=== PATIENT | male | born 1950 | race Caucasian/White ===

== ENCOUNTER → 2018-03-24 07:14 | Outpatient (CLI) | payer MEDICARE, OTHER, SELFPAY ==
[2018-03-24 10:47] LABS: Basophil# 0.02 X10^3/uL; Basophil% 0.5 % (0-1); Eosinophil# 0.09 X10^3/uL; Eosinophils% 2.1 % (0-5); Hematocrit 43.2 % (40-54); Hemoglobin 14.6 g/dl (13.0-16.5); Lymphocyte % 40.4 % (19-41); Mean Corp Hgb Conc 33.8 g/gl (32-36); Mean Corpuscular Hgb 32.2 pg (27.0-32.0); Mean Corpuscular Volume 95.2 fL (80-94); Monocyte# 0.44 X10^3/uL; Monocyte% 10.5 % (0-10); Neutrophil # 1.96 X10^3/uL (2.7-7.7); Neutrophil % 46.5 % (47-70); Platelet Count 191 K/mm3 (150-450); RBC Distribution Width CV 12.9 % (11.6-14.6); RBC Distribution Width SD 43.7 fl (35.1-43.9); Red Blood Count 4.54 M/mm3 (4.6-6.2); White Blood Count 4.2 K/mm3 (4.4-11.0)
[2018-03-24 10:51] LABS: POSITIVE COUNT NO; POSITIVE DIFFERENTIAL NO; POSITIVE MORPHOLOGY NO
[2018-03-24 11:05] LABS: ALB/GLOB Ratio 1.1 RATIO (0.9-2.4); AST(SGOT) 25 U/L (15-37); Alanine Aminotransfer ALT/SGPT 31 U/L (16-61); Albumin, Serum 3.9 g/dL (3.2-5.0); Alkaline Phosphatase 45 U/L (45-117); Anion Gap 9 (5-15); BUN 16 mg/dL (7-18); BUN/Creat Ratio 18.6 RATIO (10-20); Calcium,Total 8.7 mg/dL (8.5-10.1); Chloride 106 mmol/L (98-107); Cholesterol 218 mg/dL (200); Creatinine, Serum 0.86 mg/dL (0.70-1.30); EST Glomerular Filtration Rate 94 mL/min (>60); Est Glom Filt Rate - Afr Amer 113 mL/min (>60); Globulin 3.4 g/dL (2.2-4.2); Glucose 83 mg/dL (74-106); High Density Lipoprotein 58 mg/dL; PSA,Total - Annual Screen 3.52 ng/mL (0.00-4.00); Potassium 3.9 mmol/L (3.5-5.1); Protein, Total 7.3 g/dL (6.4-8.2); Sodium Level 143 mmol/L (136-145); Triglycerides 60 mg/dL; Very Low Density Lipoprotein 12 mg/dL (5-40)
== END ==
PROVIDERS: Family Provider Family Medicine; PCP Family Medicine; Visit Provider Family Medicine
DX: E78.5 Hyperlipidemia, unspecified (principal); R53.83 Other fatigue; N40.0 Benign prostatic hyperplasia without lower urinary tract symptoms; Z12.5 Encounter for screening for malignant neoplasm of prostate; Z51.81 Encounter for therapeutic drug level monitoring
CPT/HCPCS: 36415; 80053; 80061; 84153; 85025; G0103

== ENCOUNTER 2018-06-26 08:38 | Day surgery (SDC) | payer MEDICARE, OTHER, SELFPAY ==
--- NOTE | 2018-06-26 08:47 | EKG12_ITS ---
Test Reason : PREOP Blood Pressure : / mmHG Vent. Rate : 059 BPM Atrial Rate : 059 BPM P-R Int : 152 ms QRS Dur : 092 ms QT Int : 426 ms P-R-T Axes : 047 -46 043 degrees QTc Int : 421 ms Sinus bradycardia Left axis deviation Abnormal ECG No previous ECGs available Confirmed by NARESH CHO, ADRIENNE ([id number]), rewrite editor UNIQUE VAZQUEZ ([id number] on 06/27/2018 2:58:48 PM Referred By: Reji Jade Confirmed By:ADRIENNE INFANTE MD
[2018-06-26 09:01] LABS: Hematocrit 45.1 % (40-54); Hemoglobin 15.4 g/dl (13.0-16.5); Mean Corp Hgb Conc 34.1 g/gl (32-36); Mean Corpuscular Hgb 32.3 pg (27.0-32.0); Mean Corpuscular Volume 94.5 fL (80-94); Mean Platelet Vol. 9.9 fl (6.2-12.0); Platelet Count 217 K/mm3 (150-450); RBC Distribution Width CV 12.8 % (11.6-14.6); RBC Distribution Width SD 43.2 fl (35.1-43.9); Red Blood Count 4.77 M/mm3 (4.6-6.2); White Blood Count 4.2 K/mm3 (4.4-11.0)
[2018-06-26 09:02] VITALS: BP 136/70; PULSE 58; RESP 18; TEMP 37.2; O2SAT 96; BMI 23.4
[2018-06-26 09:02] LABS: Scan Indicated on CBC? Y/N NO
[2018-06-26 09:10] LABS: Anion Gap 9 (5-15); BUN 17 mg/dL (7-18); BUN/Creat Ratio 19.1 RATIO (10-20); Calcium,Total 9.2 mg/dL (8.5-10.1); Chloride 106 mmol/L (98-107); Creatinine, Serum 0.89 mg/dL (0.70-1.30); EST Glomerular Filtration Rate 90 mL/min (>60); Est Glom Filt Rate - Afr Amer 109 mL/min (>60); Glucose 90 mg/dL (74-106); Sodium Level 146 mmol/L (136-145)
--- NOTE | 2018-06-26 10:25 | PCM.DC.GS ---
Discharge Diet: Light diet - advance as tolerated - if you have questions about your diet instructions, please talk to you doctor. Discharge Activity: May Not Drive - for 1 week or while taking narcotic pain medicine. May shower in (days): 1 Lifting Restrictions: 10 pounds Call your doctor if your incision/area has: Continuous Slow Oozing, Sudden Increased Bleeding, Increased Pain/ Swelling, Increased Redness, Foul Smelling Discharge Call your doctor if you observe: Fever of 101 or Higher Suture Line Care: Avoid Pulling/Pushing, Avoid Pinching/Bending Additional Dressing/Incision Instructions:: Change or remove dressing in 4 days. Leave steri-strips in place for 1 week. Allergies/Adverse Reactions: Allergies No Known Allergies Allergy (Verified 06/26/18 09:00) Medications to take at Discharge cyclobenzaprine 10 mg tablet 10 mg PO TID PRN 06/15/18 vardenafil 20 mg tablet 20 mg PO ONCE PRN 06/15/18 Hydrocodone Bitart/Apap 5-325 [[place] 5/325] 1 - 2 tab PO Q4H PRN PRN 3 Days #8 tab 06/26/18 The following prescriptions were given: Hydrocodone Bitart/Apap 5-325 [[place] 5/325] 1 - 2 tab PO Q4H PRN PRN 3 Days #8 tab PRN Reason: Pain Primary Care Physician: Moraima Merritt DO [Primary Care Provider] - Test Results: Test results from this visit will be discussed in further detail at your follow-up appointment, if applicable. Please Follow Up With: Reji Jade MD - [phone] When: Call to make an appointment to be seen in about 10 days.
[2018-06-26] MEDS: Cefazolin 2 GM in 0.9% Normal Saline 100 ML IV (10:27)
--- NOTE | 2018-06-26 10:45 | LIP_PTH ---
PATIENT: MARISEL YU LOC: [facility] [place] U#:[id number] AGE/SX: 68/M ROOM: RE06/26/[address]: Dr. Reji Jade MD : 1950 BED: DIS: 06/26/2018 SPEC #: [id number] RECD: 06/26/18 12:36 STATUS: ZACKARY REAnselmo #: [id number] BRIGETTE: 06/26/18 10:[address]: Reji Jade DEPT: SURGICAL PATHOLOGY RECD BY: Edgar Gutierrez ENTERED: 06/26/18 13:02 SP TYPE: LIPOMA OTHR DR: Dr. Moraima Merritt, DO Tissues: Soft tissues, NOS Procedures: Surgery Specimen Level III HEADER OPERATION: Inguinal hernia with mesh PRE-OP DIAGNOSIS: Right inguinal hernia TISSUE SUBMITTED: Cord lipoma MICROSCOPIC DIAGNOSIS Cord lipoma: Mature adipose tissue, consistent with lipoma. SJ:peter 06/27/18 MICROSCOPIC DESCRIPTION Slides are reviewed. GROSS DESCRIPTION Received in fixative is one container labeled with the patient's name and designated cord lipoma. The specimen consists of three variable sized pieces of yellow adipose tissue that in aggregate measure 7.5 x 2 x 1 cm. No mass lesion is identified. Ham Stripper sections are submitted in one cassette. / SJ:rg 06/26/18 TC:1 CPT: 78788
[2018-06-26] MEDS: Bupivacaine Mpf 0.5% 30 ML VIAL (11:28)
--- NOTE | 2018-06-26 11:30 | PCM.OPRPT ---
Problem List (1) Inguinal hernia of right side without obstruction or gangrene Status: Acute Report of Operation Date of Procedure: 06/26/18 Pre-Operative Diagnosis: Right inguinal hernia Post-Operative Diagnosis: Indirect right inguinal hernia with cord lipoma Surgery/Procedure Performed:: Hardik right inguinal herniorrhaphy with excision cord lipoma Description of Surgical Findings:: Timeout informed consent was obtained. 68-year-old gentleman was taken to the operating room. He was placed on the table. He underwent monitored anesthesia care. Ancef 2 g given intravenously preoperatively. The right groin was sterilely prepped and draped. 2% lidocaine mixed 50-50 with 0.5% Marcaine was used as local anesthetic. The procedure total 30 cc was used. Local was instilled. A transverse incision was made in the right groin. Sharp dissection carried down through the subcutaneous tissue. The external oblique was identified and incised along with his fascia. Hemostasis obtained with electrocautery. The ileal nerve identified and protected. Circumferential control was obtained of the cord structures. There was hypertrophy of cremasteric fibers which had to be released. Tedious dissection was used to identify cord lipoma which was high ligated with 3-0 Vicryl. The indirect hernia was dissected free and inverted. Dissection performed so as to identify the direct space overlying the pubic tubercle and the indirect defect. The transversalis fascia was approximated to itself using a 3-0 Ethibond starting at the pubic tubercle to the internal ring. Then a Bard mesh preshaped keyhole 10 x 4.5 cm was used. Lot number RESERVOIR ENGINEER and [id number]. Reference #[id number]. Expiry date 11/23/2022 was utilized. Keyhole was placed around the cord structures and it was secured to itself laterally with interrupted 3-0 Ethibond. The tails were slightly shortened. The mesh was placed so as to overlie the pubic tubercle cover the direct space and lie underneath the external oblique laterally. It was secured in place with multiple interrupted 3-0 Ethibond sutures. Good positioning and securement was achieved. The external oblique was then approximated with a running 3-0 Vicryl. Subdermal tissues were approximated with interrupted 4-0 Monocryl. The skin edges proximate running septic or 4-0 Monocryl. Steri-Strips Telfa and OpSite dressings applied. Sponge and instrument and needle counts were reported to the surgeon to be correct. Specimens Cord lipoma. Drains none. Blood loss minimal. He was taken to the recovery area in satisfactory condition without apparent complication. Reji Jade M.D., F.A.C.S. Type of Anesthesia:: Local MAC Anesthesiologist: Demetri Pappas
--- NOTE | 2018-06-26 11:34 | OP.PCM_ITS ---
Problem List (1) Inguinal hernia of right side without obstruction or gangrene Status: Acute Report of Operation Date of Procedure: 06/26/18 Pre-Operative Diagnosis: Right inguinal hernia Post-Operative Diagnosis: Indirect right inguinal hernia with cord lipoma Surgery/Procedure Performed:: Hardik right inguinal herniorrhaphy with excision cord lipoma Description of Surgical Findings:: Timeout informed consent was obtained. 68-year-old gentleman was taken to the operating room. He was placed on the table. He underwent monitored anesthesia care. Ancef 2 g given intravenously preoperatively. The right groin was sterilely prepped and draped. 2% lidocaine mixed 50-50 with 0.5% Marcaine was used as local anesthetic. The procedure total 30 cc was used. Local was instilled. A transverse incision was made in the right groin. Sharp dissection carried down through the subcutaneous tissue. The external oblique was identified and incised along with his fascia. Hemostasis obtained with electrocautery. The ileal nerve identified and protected. Circumferential control was obtained of the cord structures. There was hypertrophy of cremasteric fibers which had to be released. Tedious dissection was used to identify cord lipoma which was high ligated with 3-0 Vicryl. The indirect hernia was dissected free and inverted. Dissection performed so as to identify the direct space overlying the pubic tubercle and the indirect defect. The transversalis fascia was approximated to itself using a 3-0 Ethibond starting at the pubic tubercle to the internal ring. Then a Bard mesh preshaped keyhole 10 x 4.5 cm was used. Lot number PNEUMATIC SYSTEMS OPERATOR and [id number]. Reference #[id number]. Expiry date 11/23/2022 was utilized. Keyhole was placed around the cord structures and it was secured to itself laterally with interrupted 3-0 Ethibond. The tails were slightly shortened. The mesh was placed so as to overlie the pubic tubercle cover the direct space and lie underneath the external oblique laterally. It was secured in place with multiple interrupted 3-0 Ethibond sutures. Good positioning and securement was achieved. The external oblique was then approximated with a running 3-0 Vicryl. Subdermal tissues were approximated with interrupted 4-0 Monocryl. The skin edges proximate running septic or 4-0 Monocryl. Steri-Strips Telfa and OpSite dressings applied. Sponge and i nstrument and needle counts were reported to the surgeon to be correct. Specimens Cord lipoma. Drains none. Blood loss minimal. He was taken to the recovery area in satisfactory condition without apparent complication. Reji Jade M.D., F.A.C.S. Type of Anesthesia:: Local MAC Anesthesiologist: Demetri Pappas
[2018-06-26 11:43] VITALS: BP 108/71; BP 136/70; PULSE 55; RESP 16; TEMP 36.2; O2SAT 97
[2018-06-26 11:45] VITALS: BP 114/72; BP 136/70; PULSE 56; RESP 16; O2SAT 97
[2018-06-26 12:00] VITALS: BP 118/73; BP 136/70; PULSE 54; RESP 16; O2SAT 97
[2018-06-26 12:15] VITALS: BP 120/72; BP 136/70; PULSE 52; RESP 16; TEMP 36.4; O2SAT 100
[2018-06-26 14:20] VITALS: BP 136/70; BP 148/83; PULSE 50; RESP 16; TEMP 36.3; O2SAT 97
== END 2018-06-26 14:24 | disposition home or self-care (01) ==
LOC: SDC 08:40 → AC 08:41
PROVIDERS: Family Provider Family Medicine; PCP Family Medicine; Referring Provider Surgery; Visit Provider Surgery
PROC: (CPT 49505; principal; 2018-06-26 10:30)
DX: K40.90 Unilateral inguinal hernia, without obstruction or gangrene, not specified as recurrent (principal); D17.6 Benign lipomatous neoplasm of spermatic cord; R94.31 Abnormal electrocardiogram [ECG] [EKG]; R00.1 Bradycardia, unspecified; E78.00 Pure hypercholesterolemia, unspecified; Z79.899 Other long term (current) drug therapy; Z87.891 Personal history of nicotine dependence
CPT/HCPCS: 49505; 36415; 80048; 85027; 88304; 93005; J7120; C1781

== ENCOUNTER 2018-11-21 09:51 | Day surgery (SDC) | payer MEDICARE, OTHER, SELFPAY ==
[2018-11-21] VITALS (11 sets, daily range): BP systolic 96–135; BP diastolic 61–79; PULSE 58–66; RESP 16; TEMP 36.3–36.7; O2SAT 94–100; BMI 23.7
--- NOTE | 2018-11-21 | COLBX_PTH ---
PATIENT: MARISEL YU LOC: [place] U#:[id number] AGE/SX: 68/M ROOM: RE11/21/[address]: Dr. Reji Jade MD : 1950 BED: DIS: 11/21/2018 SPEC #: [id number] RECD: 11/21/18 12:37 STATUS: ZACKARY MARTHA #: [id number] BRIGETTE: 11/21/18 00:[address]: Reji Jade DEPT: SURGICAL PATHOLOGY RECD BY: Stiven Srinivasan ENTERED: 11/21/18 12:38 SP TYPE: COLON BX OTHR DR: Dr. Moraima Merritt DO Tissues: Transverse colon Procedures: Surgery Specimen Level IV HEADER OPERATION: Colonoscopy (MOD) PRE-OP DIAGNOSIS: Screening TISSUE SUBMITTED: Proximal transverse polyp biopsy MICROSCOPIC DIAGNOSIS Proximal transverse colon polyp, biopsy: Tubular adenoma. SJ:peter 11/22/18 MICROSCOPIC DESCRIPTION Slides are reviewed. GROSS DESCRIPTION Received in fixative is one container labeled with the patient's name and designated proximal transverse polyp biopsy. The specimen consists of two irregular fragments of light copeland soft tissue that in aggregate measure 0.6 x 0.3 x 0.1 cm. The specimen is totally submitted in one cassette. / SJ:peter 11/21/18 TC:1 CPT: 76509
--- NOTE | 2018-11-21 10:40 | PCM.HP.STD ---
Problem List (1) Personal history of colonic polyps Status: Acute History of Present Illness Date of Admission: 11/21/18 The patient is a 68 year old M who has a personal history of colon polyps. His most recent colonoscopy was 5 years ago. June he did have a Hardik right inguinal herniorrhaphy. He denies bright red blood per rectum or melena. He recalls that he is previously had 6 inches of his colon removed. This was for benign disease polyp. He otherwise enjoys good health. Past Medical History Medical History: Medical History (Last Reviewed 06/15/18 @ 08:29 by Alyssia Garner) Inguinal hernia of right side without obstruction or gangrene (Acute) K40.90 Hyperlipemia (Acute) E78.5 BPH (benign prostatic hyperplasia) (Acute) N40.0 Tremor, essential (Acute) G25.0 Erectile dysfunction (Acute) N52.9 Chronic low back pain (Acute) M54.5, G89.29 Fatigue (Acute) R53.83 Allergies No Known Allergies Allergy (Verified 11/21/18 10:09) Home Medications: Ambulatory Orders Medication Instructions Recorded cyclobenzaprine 10 mg tablet 10 mg PO PRN PRN 06/15/18 Hydrocodone/Acetaminophen 1 tab PO Q4H PRN 11/15/18 [Hydrocodone-Acetamin 5-325 mg] Ibuprofen 800 mg PO TID PRN 11/15/18 Surgical History: Surgical History (Last Updated 07/05/18 @ 14:16 by Lay Calvillo) Hx of colonoscopy (Acute) Z98.890 2014 Hx of hernia repair (Acute) Z98.890, Z87.19 X2 Hx of appendectomy (Acute) Z90.49 2-17-12 History of bowel resection (Acute) Z98.890, Z90.49 2-17-12 History of right inguinal hernia repair Onset Date: ~06/2018 Z98.890, Z87.19 Smoking Status: Former smoker Review of Systems Constitutional: Denies: Anorexia HEENT: Denies: Difficulty Swallowing Cardiovascular: Denies: Chest Pain Gastrointestinal: Denies: Abdominal Pain Psychiatric: Denies: Anxiety Endocrine: Denies: Change in Body Habitus VTE Information - Inpt Only VTE Present on Admission: No Patient Problems: Active and Suspected Problems (Last Reviewed 06/15/18 @ 08:29 by Alyssia Garner) Personal history of colonic polyps (Acute) - Physical Exam General: Alert, Oriented x3, Cooperative, No apparent distress Oral: Moist Mucosa Neck: Supple Lungs: Clear to auscultation Cardiovascular: Regular rate, Regular Rhythm Abdomen: Bowel Sounds Present, Soft, Non Tender, Non-Distended Musculoskeletal: No Tenderness to Palpation of Joints or Extremities Psych/Mental Status: Normal Affect Vital Signs Temp Pulse Resp BP Pulse Ox 97.4 F L 58 L 16 129/70 H 100 11/21/18 10:11 11/21/18 10:11 11/21/18 10:11 11/21/18 10:11 11/21/18 10:11 Oxygen Delivery Method Room Air Weight: 156 lb Body Mass Index (BMI) 23.7 Assessment/Plan All Active Problems (Last Reviewed 06/15/18 @ 08:29 by Alyssia Garner) Personal history of colonic polyps (Acute) Inguinal hernia of right side without obstruction or gangrene (Acute) Hx of colonoscopy (Acute) Hx of hernia repair (Acute) Hx of appendectomy (Acute) History of bowel resection (Acute) Hyperlipemia (Acute) BPH (benign prostatic hyperplasia) (Acute) Tremor, essential (Acute) Erectile dysfunction (Acute) Chronic low back pain (Acute) Fatigue (Acute) Recommending a colonoscopy with possible biopsy or polypectomy as indicated. He is aware of the technique, benefits, risks and alternatives. He has had an opportunity to ask and have questions answered. We will proceed as noted. He presents via our open access program today Reji Jade M.D., F.A.C.S.
--- NOTE | 2018-11-21 11:06 | OP.ENDO_ITS ---
11/21/2018 Moraima Merritt [address] [facility] [place] [address] Re : Colonoscopy procedure for [facility] Dear Dr. Merritt This procedure was performed on Wednesday, November 21, 2018. My impressions and recommendations are as follows: Impressions : - Preparation of the colon was fair. - Non-thrombosed external hemorrhoids, non-thrombosed internal hemorrhoids, internal hemorrhoids that prolapse with straining, but spontaneously regress to the resting position (Grade II) and enlarged prostate found on digital rectal exam. - One 4 mm polyp in the proximal transverse colon, removed with a cold biopsy forceps. Resected and retrieved. - Patent end-to-end colo-colonic anastomosis, characterized by healthy appearing mucosa. - The examination was otherwise normal. Recommendations : - Discharge patient to home. - Resume previous diet. - Continue present medications. - Repeat colonoscopy in 5 years for surveillance based on pathology results. - Telephone my office for pathology results in 1 week. Poor prep at the cecum but the remainder of the prep was good My findings are described in the full procedure note, which is enclosed. If I can be of further assistance, please feel free to contact me at Doctor phone number(s): Work: . Sincerely, Reji Jade MD 11/21/2018 11:06:20 AM This report has been signed electronically.
== END 2018-11-21 11:45 | disposition home or self-care (01) ==
LOC: EN 09:54 → AC 09:55
PROVIDERS: Family Provider Family Medicine; PCP Family Medicine; Referring Provider Surgery; Visit Provider Surgery
PROC: 0DJD8ZZ Inspection of Lower Intestinal Tract, Via Natural or Artificial Opening Endoscopic (ICD-10-PCS; CPT 45378; principal; 2018-11-21 10:40)
DX: D12.3 Benign neoplasm of transverse colon (principal); K64.1 Second degree hemorrhoids; K64.4 Residual hemorrhoidal skin tags; N40.0 Benign prostatic hyperplasia without lower urinary tract symptoms; G25.0 Essential tremor; M54.5 Low back pain; G89.29 Other chronic pain; Z79.891 Long term (current) use of opiate analgesic; Z87.891 Personal history of nicotine dependence
CPT/HCPCS: 45380; 88305; 99152; 99153; J7120

== ENCOUNTER → 2019-06-21 | Outpatient (CLI) | payer MEDICARE, OTHER, SELFPAY ==
[2018-11-21 10:11] VITALS: BMI 23.7
[2019-06-21 12:10] LABS: Absolute Lymphocyte Count 1.32 X10^3/uL (0.83-4.51); Absolute Neutrophil Count 1.7 X10^3/uL (2.0-7.7); Basophil# 0.04 X10^3/uL; Basophil% 1.1 % (0-1); Eosinophil# 0.19 X10^3/uL; Eosinophils% 5.1 % (0-5); Hematocrit 45.7 % (40-54); Hemoglobin 15.2 g/dL (13.0-16.5); Lymphocyte # 1.32 X10^3/ul (4.0); Lymphocyte % 35.8 % (19-41); Mean Corp Hgb Conc 33.3 g/dL (32-36); Mean Corpuscular Hgb 32.4 pg (27.0-32.0); Mean Corpuscular Volume 97.4 fL (80-94); Mean Platelet Vol. 10.6 fl (6.2-12.0); Monocyte# 0.43 X10^3/uL; Monocyte% 11.7 % (0-10); NRBC Flagged by Analyzer 0 % (0-5); Platelet Count 199 K/mm3 (150-450); RBC Distribution Width CV 12.8 % (11.6-14.6); RBC Distribution Width SD 46.1 fl (35.1-43.9); Red Blood Count 4.69 M/mm3 (4.6-6.2); White Blood Count 3.7 K/mm3 (4.4-11.0)
[2019-06-21 12:27] LABS: ALB/GLOB Ratio 1.1 RATIO (0.9-2.4); AST(SGOT) 19 U/L (15-37); Alanine Aminotransfer ALT/SGPT 23 U/L (16-61); Alkaline Phosphatase 46 U/L (45-117); Anion Gap 6 (5-15); BUN 14 mg/dL (7-18); BUN/Creat Ratio 14.3 RATIO (10-20); Calcium,Total 8.9 mg/dL (8.5-10.1); Chloride 109 mmol/L (98-107); Cholesterol 249 mg/dL (200); Creatinine, Serum 0.98 mg/dL (0.70-1.30); EST Glomerular Filtration Rate 80 mL/min (>60); Est Glom Filt Rate - Afr Amer 97 mL/min (>60); Globulin 3.8 g/dL (2.2-4.2); Glucose 85 mg/dL (74-106); High Density Lipoprotein 71 mg/dL; PSA,Total - Annual Screen 4.84 ng/mL (0.00-4.00); Protein, Total 7.8 g/dL (6.4-8.2); Sodium Level 142 mmol/L (136-145); Triglycerides 61 mg/dL; Very Low Density Lipoprotein 12 mg/dL (5-40)
== END | disposition home or self-care (01) ==
LOC: LAB.FUTURE 08:13
PROVIDERS: Family Provider Family Medicine; PCP Family Medicine; Visit Provider Family Medicine
DX: Z00.00 Encounter for general adult medical examination without abnormal findings (principal); E78.5 Hyperlipidemia, unspecified; R53.83 Other fatigue; Z12.5 Encounter for screening for malignant neoplasm of prostate
CPT/HCPCS: 36415; 80053; 80061; 84153; 85025; G0103

== ENCOUNTER → 2020-06-23 08:36 | Outpatient (CLI) | payer MEDICARE, OTHER, SELFPAY ==
[2018-11-21 10:11] VITALS: BMI 23.7
[2020-06-23 12:19] LABS: Absolute Lymphocyte Count 1.45 X10^3/uL (0.83-4.51); Absolute Neutrophil Count 1.8 X10^3/uL (2.0-7.7); Basophil# 0.03 X10^3/uL; Basophil% 0.8 % (0-1); Eosinophil# 0.06 X10^3/uL; Eosinophils% 1.6 % (0-5); Hematocrit 45.4 % (40-54); Hemoglobin 14.9 g/dL (13.0-16.5); Lymphocyte # 1.45 X10^3/ul (4.0); Lymphocyte % 39.6 % (19-41); Mean Corp Hgb Conc 32.8 g/dL (32-36); Mean Corpuscular Hgb 31.3 pg (27.0-32.0); Mean Corpuscular Volume 95.4 fL (80-94); Mean Platelet Vol. 10.9 fl (6.2-12.0); Monocyte# 0.36 X10^3/uL; Monocyte% 9.8 % (0-10); NRBC Flagged by Analyzer 0 % (0-5); Neutrophil # 1.76 X10^3/uL (2.7-7.7); Neutrophil % 48.2 % (47-70); Platelet Count 203 K/mm3 (150-450); RBC Distribution Width CV 12.6 % (11.6-14.6); RBC Distribution Width SD 44.7 fl (35.1-43.9); Red Blood Count 4.76 M/mm3 (4.6-6.2); White Blood Count 3.7 K/mm3 (4.4-11.0)
[2020-06-23 12:50] LABS: ALB/GLOB Ratio 1.1 RATIO (0.9-2.4); AST(SGOT) 33 U/L (15-37); Alanine Aminotransfer ALT/SGPT 37 U/L (16-61); Albumin, Serum 4.1 g/dL (3.2-5.0); Alkaline Phosphatase 45 U/L (45-117); Anion Gap 4 (5-15); BUN 12 mg/dL (7-18); BUN/Creat Ratio 12.5 RATIO (10-20); Calcium,Total 9.3 mg/dL (8.5-10.1); Chloride 108 mmol/L (98-107); Cholesterol 251 mg/dL (200); Creatinine, Serum 0.96 mg/dL (0.70-1.30); EST Glomerular Filtration Rate 82 mL/min (>60); Est Glom Filt Rate - Afr Amer 99 mL/min (>60); Globulin 3.8 g/dL (2.2-4.2); Glucose 84 mg/dL (74-106); High Density Lipoprotein 69 mg/dL; PSA,Total - Annual Screen 6.04 ng/mL (0.00-4.00); Potassium 3.8 mmol/L (3.5-5.1); Protein, Total 7.9 g/dL (6.4-8.2); Sodium Level 141 mmol/L (136-145); Triglycerides 76 mg/dL; Very Low Density Lipoprotein 15 mg/dL (5-40)
== END ==
PROVIDERS: PCP Family Medicine; Visit Provider Family Medicine
DX: Z00.00 Encounter for general adult medical examination without abnormal findings (principal); E78.5 Hyperlipidemia, unspecified; R53.83 Other fatigue; Z12.5 Encounter for screening for malignant neoplasm of prostate
CPT/HCPCS: 36415; 80053; 80061; 84153; 85025; G0103

== ENCOUNTER → 2020-07-04 17:37 | Outpatient (CLI) | payer MEDICARE, OTHER, SELFPAY ==
[2018-11-21 10:11] VITALS: BMI 23.7
== END ==
PROVIDERS: PCP Family Medicine; Referring Provider Family Medicine; Visit Provider Family Medicine
DX: Z20.828 Contact with and (suspected) exposure to other viral communicable diseases (principal)
CPT/HCPCS: 87635; C9803; U0003

== ENCOUNTER → 2021-08-03 07:18 | Outpatient (CLI) | payer MEDICARE, OTHER, SELFPAY ==
[2021-08-03 10:08] LABS: Creatinine, Serum 0.82 mg/dL (0.70-1.30); EST Glomerular Filtration Rate 98 mL/min (>60); Est Glom Filt Rate - Afr Amer 118 mL/min (>60)
== END ==
PROVIDERS: PCP Family Medicine; Referring Provider Student in an Organized Health Care Education/Training Program; Visit Provider Student in an Organized Health Care Education/Training Program
DX: Z01.818 Encounter for other preprocedural examination (principal)
CPT/HCPCS: 36415; 82565

== ENCOUNTER 2022-01-31 00:33 | Emergency (ER) | payer MEDICARE, OTHER, SELFPAY ==
[2022-01-31 00:35] VITALS: BP 186/99; PULSE 58; RESP 16; TEMP 36.8; O2SAT 95; BMI 24.8
--- NOTE | 2022-01-31 00:55 | EX.ED.DYSGE1 ---
HPI History of Present Illness Chief Complaint: Complaint Narrative Narrative: Patient is a 71-year-old male who states he has not been able to urinate for approximately 2 to 3 hours. He states he does have a history of BPH but denies any previous history of urinary retention. He states he keeps feeling like he has to urinate but is unable to do so and he has noticed increased pain to his lower abdomen. He states he is concerned he may need a Lanier catheter and secondary to this presents for evaluation. PFSH PFS Medical History BPH (benign prostatic hyperplasia) Chronic low back pain Erectile dysfunction Fatigue Hyperlipemia Inguinal hernia of right side without obstruction or gangrene Tremor, essential Home Medications cyclobenzaprine 10 mg tablet 10 mg PO PRN PRN 06/15/18 [History Last Taken Unknown] hydrocodone-acetaminophen 1 tab PO Q4H PRN 11/15/18 [History Last Taken Unknown] ibuprofen 800 mg PO TID PRN 11/15/18 [History Last Taken Unknown] Allergy/AdvReac Type Severity Reaction Status Date / Time No Known Allergies Allergy Verified 11/21/18 10:09 Family History Mother Colon cancer Heart disease Surgical History (Updated 11/21/18 @ 10:[address] Reji Jade MD) History of bowel resection History of right inguinal hernia repair (~06/2018) Hx of appendectomy Hx of colonoscopy Hx of hernia repair Social History (Updated 07/05/18 @ 16:09 by Sherry DE LA VEGA PA-C) Smoking Status: Former smoker second hand exposure: No alcohol intake: current alcohol intake frequency: a few times a month substance use type: does not use caffeine: Yes what type of physical activity do you participate in: other details: Dave frequency: 5-6 times per week seatbelt use: always ROS ROS ED Constitutional Constitutional ED: Denies chills or fever(s) ENT ENT ED: Denies sore throat Cardiovascular Cardiovascular: Denies chest pain Respiratory/Chest Respiratory/Chest: Denies cough or dyspnea Gastrointestinal Gastrointestinal: Reports abdominal pain; Denies diarrhea, nausea or vomiting Genitourinary Genitourinary ED: Reports other Details: Positive urinary retention ; Denies dysuria Musculoskeletal Musculoskeletal: Reports back pain; Denies myalgias Integumentary Denies rash Neurologic Neurologic: Denies headache(s) Hematologic/Lymphatic Hematologic/Lymphatic: Denies easy bleeding or easy bruising EXAM Physical Exam Const Vital Signs: 01/31/22 00:35 01/31/22 01:10 Temperature 98.2 F Temperature Source Oral Pulse Rate 58 L 60 Respiratory Rate 16 16 Blood Pressure 186/99 H 168/78 H Blood Pressure Mean 128 108 Pulse Ox 95 98 Oxygen Delivery Method Room Air Room Air Positive well nourished and well developed General Appearance ED: well developed Eyes PERRL and EOMs intact bilaterally Neck supple Resp normal respiratory effort and clear to auscultation bilaterally Cardio regular rate and regular rhythm Rate: other Other Details: Radial pulses are plus 2 out of 4 bilaterally are equal and symmetric GI GI Narrative: Patient has organomegaly in the midline of the lower abdomen consistent with a distended bladder. There is pain with palpation at the site. Other areas of the abdomen are soft and nontender. Bowel sounds are hypoactive. No pulsatile mass. Narrative: Normal circumcised male without blood or discharge from the urethral meatus. No testicular swelling or masses noted. No overlying soft tissue changes to suggest Manny's gangrene. Extremity normal to inspection Neuro oriented x3 and CN's II-XII intact bilaterally Sensorium / Orientation: alert Motor Exam: strength 5/5 throughout Psych mental status grossly normal Skin no rashes or lesions noted MDM MDM MDM Narrative Medical decision making narrative: Patient presented to the ER hypertensive which I felt was secondary to pain and otherwise with stable vitals. His history and exam is consistent with acute urinary retention and a bladder scan was performed which showed over 800 mL of fluid in his bladder. He reported his only been approximately 3 hours since his last urination and therefore did not feel there was a high risk factor for acute kidney injury and did not feel need for laboratory studies. The patient had a Lanier catheter placed which drained approximately 1 L of fluid/urine. Following this his pain and organomegaly resolved. Therefore at this time I feel that his BPH is leading to acute urinary retention and in order to ensure there is no return of this the Lanier catheter will be left in place. Patient will follow-up with urology on Tuesday for repeat evaluation and most likely voiding trial. Discharge Plan Triage Chief Complaint: Complaint ED Provider: Vaibhav Vu Dx/Rx/DC Orders Clinical Impression: Acute urinary retention, BPH (benign prostatic hyperplasia) Instructions: ED BPH (Enlarged Prostate), ED Urinary Retention, Male Prescriptions: No Action cyclobenzaprine 10 mg tablet 10 mg PO PRN PRN (Reason: Muscle Spasm) RF: 0 ibuprofen 800 MG tablet 800 mg PO TID PRN (Reason: Pain) RF: 0 hydrocodone-acetaminophen 5 MG-32 tablet 1 tab PO Q4H PRN (Reason: Pain) RF: 0 Primary Care Provider: Moraima Merritt Referrals: Bennett Reid MD [STAFF PHYSICIAN] - 3-5 Days Moraima Merritt DO [Primary Care Provider] - Activity Restrictions/Additional Instructions: Please follow-up with your urologist for repeat evaluation and return to the ER should you have any further concerns or problems with your Lanier catheter Disposition Disposition: Home, Self Care
[2022-01-31 01:10] VITALS: BP 168/78; PULSE 60; RESP 16; O2SAT 98
[2022-01-31 01:22] VITALS: BP 119/74; PULSE 57; RESP 16; O2SAT 96
== END 2022-01-31 01:25 | disposition home or self-care (01) ==
PROVIDERS: Emergency Provider Emergency Medicine; PCP Family Medicine; Visit Provider Emergency Medicine
DX: R33.9 Retention of urine, unspecified (principal); N40.1 Benign prostatic hyperplasia with lower urinary tract symptoms; Z87.891 Personal history of nicotine dependence
CPT/HCPCS: 51702; 99283

== ENCOUNTER 2022-02-24 23:00 | Emergency (ER) | payer MEDICARE, OTHER, SELFPAY ==
[2022-02-24 23:01] VITALS: BP 154/97; PULSE 69; RESP 16; TEMP 36.5; O2SAT 95; BMI 25.4
--- NOTE | 2022-02-24 23:43 | EDS_ITS ---
HPI History of Present Illness Chief Complaint: Complaint Narrative Narrative: Patient is a 72-year-old male who presents with lower abdominal pain/urinary retention. He was seen about 1 month ago for similar event. He states this evening he went out to dinner and had 2 beers. He states he was urinating fine but then a few hours prior to arrival he could not urinate anymore. With concern that he was developing retention once again he presents to the hospital for evaluation [facility] Medical History BPH (benign prostatic hyperplasia) Chronic low back pain Erectile dysfunction Fatigue Hyperlipemia Inguinal hernia of right side without obstruction or gangrene Tremor, essential Home Medications cyclobenzaprine 10 mg tablet 10 mg PO PRN PRN 06/15/18 [History Last Taken Unknown] hydrocodone-acetaminophen 1 tab PO Q4H PRN 11/15/18 [History Last Taken Unknown] ibuprofen 800 mg PO TID PRN 11/15/18 [History Last Taken Unknown] Allergy/AdvReac Type Severity Reaction Status Date / Time No Known Allergies Allergy Verified 11/21/18 10:09 Family History Mother Colon cancer Heart disease Surgical History (Updated 11/21/18 @ 10:[address] Reji Jade MD) History of bowel resection History of right inguinal hernia repair (~06/2018) Hx of appendectomy Hx of colonoscopy Hx of hernia repair Social History (Updated 07/05/18 @ 16:09 by Sherry DE LA VEGA, PA-C) Smoking Status: Former smoker second hand exposure: No alcohol intake: current alcohol intake frequency: a few times a month substance use type: does not use caffeine: Yes what type of physical activity do you participate in: other details: Dave frequency: 5-6 times per week seatbelt use: always ROS ROS ED Constitutional Constitutional ED: Denies chills or fever(s) ENT ENT ED: Denies sore throat Cardiovascular Cardiovascular: Denies chest pain Respiratory/Chest Respiratory/Chest: Denies cough or dyspnea Gastrointestinal Gastrointestinal: Reports abdominal pain; Denies diarrhea, nausea or vomiting Genitourinary Genitourinary ED: Reports other Details: Positive urinary retention ; Denies dysuria Musculoskeletal Musculoskeletal: Denies back pain or myalgias Integumentary Denies rash Neurologic Neurologic: Denies headache(s) Hematologic/Lymphatic Hematologic/Lymphatic: Denies easy bleeding or easy bruising EXAM Physical Exam Const Vital Signs: 02/24/22 23:01 02/25/22 00:09 Temperature 97.7 F L Temperature Source Temporal Pulse Rate 69 63 Respiratory Rate 16 16 Blood Pressure 154/97 H 128/63 H Blood Pressure Mean 116 84 Pulse Ox 95 93 Oxygen Delivery Method Room Air Room Air Positive well nourished and well developed General Appearance ED: well developed Eyes PERRL and EOMs intact bilaterally Neck supple Resp normal respiratory effort and clear to auscultation bilaterally Cardio regular rate and regular rhythm GI non-distended GI Narrative: Patient has organomegaly and pain with palpation in the suprapubic region consistent with a distended bladder. Otherwise the remainder of the abdomen is soft with normoactive bowel sounds and no pulsatile mass Auscultation: normoactive bowel sounds Palpation: soft Back/Spine no CVA tenderness Extremity normal to inspection Neuro oriented x3 and CN's II-XII intact bilaterally Sensorium / Orientation: alert Psych mental status grossly normal Skin no rashes or lesions noted MDM MDM MDM Narrative Medical decision making narrative: Patient presented to the ER with an history and exam consistent with acute urinary retention. As its only been a few hours since his last urination I do not feel there is need to check laboratory studies as chance for obstructive nephropathy/kidney damage was low. The patient's exam indicated acute retention so therefore Lanier catheter was placed. This drained approximately 1200 mL of normal urine. As urine did not have overt signs of infection and patient denied any recent sick symptoms I do not feel there is need to tested for infection. Therefore at this time as the patient's had his urinary retention resolved with the catheter and I have low concern for infection or acute kidney injury he is safe for discharge and can follow-up with urology on an outpatient basis Discharge Plan Triage Chief Complaint: Complaint ED Provider: Vaibhav Vu Dx/Rx/DC Orders Clinical Impression: Acute urinary retention Instructions: ED Lanier Catheter, Care, ED Urinary Retention, Male Prescriptions: No Action cyclobenzaprine 10 mg tablet 10 mg PO PRN PRN (Reason: Muscle Spasm) RF: 0 ibuprofen 800 MG tablet 800 mg PO TID PRN (Reason: Pain) RF: 0 hydrocodone-acetaminophen 5 MG-32 tablet 1 tab PO Q4H PRN (Reason: Pain) RF: 0 Primary Care Provider: Moraima Merritt Referrals: Bennett Reid MD [STAFF PHYSICIAN] - 3-5 Days Moraima Merritt DO [Primary Care Provider] - Activity Restrictions/Additional Instructions: Please leave your catheter in place until you are evaluated by urology. Please return to the if you have any further concerns or have difficulty with your catheter care Disposition Disposition: Home, Self Care Discharge Date/Time: 02/25/22 00:15
[2022-02-25 00:09] VITALS: BP 128/63; PULSE 63; PULSE 65; RESP 16; O2SAT 93
== END 2022-02-25 00:15 | disposition home or self-care (01) ==
LOC: ED 23:47
PROVIDERS: Emergency Provider Emergency Medicine; PCP Family Medicine; Visit Provider Emergency Medicine
DX: R33.9 Retention of urine, unspecified (principal); Z87.891 Personal history of nicotine dependence
CPT/HCPCS: 51702; 99283

== ENCOUNTER 2022-03-12 15:25 | Observation (INO) | payer MEDICARE, OTHER, SELFPAY ==
[2022-03-12] VITALS (13 sets, daily range): BP systolic 126–165; BP diastolic 75–98; PULSE 48–71; RESP 12–18; TEMP 36.3–37.3; O2SAT 92–99; BMI 24.8
--- NOTE | 2022-03-12 11:34 | EKG12_ITS ---
Test Reason : PRE OP Blood Pressure : / mmHG Vent. Rate : 053 BPM Atrial Rate : 053 BPM P-R Int : 154 ms QRS Dur : 100 ms QT Int : 462 ms P-R-T Axes : 047 -22 025 degrees QTc Int : 433 ms Sinus bradycardia Otherwise normal ECG When compared with ECG of 26-JUN-2018 09:03, No significant change was found Confirmed by NARESH CHO, ADRIENNE ([id number]), video effects editor KELSIE ZAIDI ([id number]) on 03/16/2022 8:52:53 AM Referred By: JOSEPH Confirmed By:ADRIENNE INFANTE MD
[2022-03-12] MEDS: Lactated Ringers 1,000 ML 15 ML IV ×2 (11:55→15:16)
[2022-03-12] MEDS: Cefazolin 2 GM in 0.9% Normal Saline 100 ML IV (13:59)
--- NOTE | 2022-03-12 15:29 | DCINST_ITS ---
Discharge Instructions Diet Discharge Diet: No restrictions Follow Up Care Please Follow Up With: Bennett Reid MD Test Results: Test results from this visit will be discussed in further detail at your follow- up appointment, if applicable. Discharge Plan Admission Primary Reason for Your Visit: enzo Attending Provider: Bennett Reid Primary Care Provider: Moraima Merirtt Instructions Patient Instructions: ENZO Home Recovery Discharge Orders/Prescriptions Prescriptions: Continued ibuprofen 800 MG tablet 800 mg PO TID PRN (Reason: Pain) Discontinued hydrocodone-acetaminophen 5 MG-32 tablet 1 tab PO Q4H PRN (Reason: Pain) tamsulosin [Flomax] 0.4 mg Capsule 0.4 mg PO BID finasteride 5 mg Tablet 5 mg PO DAILY Referrals / Follow Up: Bennett Reid MD [STAFF PHYSICIAN] - Moraima Merritt DO [Primary Care Provider] - Disposition Disposition (needs filled in before D/C Order can be placed): Home, Self Care
--- NOTE | 2022-03-12 15:29 | PCM.HP.STD ---
HPI - General HPI Narrative MARISEL YU, is a 72 M who presents for a transurethral resection of his prostate he has a large obstructive prostate with BPH with obstruction. PFSH Medical History Alcohol use Arthritis Back pain BPH (benign prostatic hyperplasia) Chronic low back pain Erectile dysfunction Fatigue Hyperlipemia Inguinal hernia of right side without obstruction or gangrene Loss of hearing Non-smoker Prostate disease Tremor, essential Wears contact lenses Wears glasses Home Medications ibuprofen 800 mg tablet 800 mg PO TID PRN Pain 11/15/18 [History Last Taken Unknown] Allergy/AdvReac Type Severity Reaction Status Date / Time No Known Allergies Allergy Verified 03/12/22 12:16 Family History Mother Colon cancer Heart disease Surgical History History of bowel resection History of right inguinal hernia repair (~06/2018) Hx of appendectomy Hx of colonoscopy Hx of hernia repair Social History (Updated 07/05/18 @ 16:09 by Sherry DE LA VEGA PA-C) Smoking Status: Never smoker second hand exposure: No alcohol intake: current alcohol intake frequency: a few times a month substance use type: does not use caffeine: Yes what type of physical activity do you participate in: other details: Dave frequency: 5-6 times per week seatbelt use: always Vital Signs Vital Signs Vital Signs: 03/12/22 12:17 03/12/22 12:17 Temperature 97.4 F L Temperature Source Temporal Pulse Rate 59 L Respiratory Rate 17 Respiratory Pattern Normal Blood Pressure 150/85 H Blood Pressure Mean 106 Blood Pressure Source Monitor Blood Pressure Position Semi-Fowlers Blood Pressure Location Left Arm Pulse Ox 97 Oxygen Delivery Method Room Air Weight Weight: 72 kg Body Mass Index (BMI) 24.8
--- NOTE | 2022-03-12 15:30 | PCM.OPRPT ---
Report of Operation Date of Procedure: 03/12/22 Pre-Operative Diagnosis: BPH with obstruction Post-Operative Diagnosis: Same Surgery/Procedure Performed:: Transurethral section of prostate Description of Surgical Findings:: 72-year-old male with a large obstructive prostate was found to have the significant voiding symptoms he now presents to the hospital for transurethral resection of the prostate we talked about the surgery Hoedi done which expect afterwards. Patient was taken back to the operating room after smooth induction of general anesthesia he was placed in dorsolithotomy position. The penis and testicles were prepped and draped in usual sterile fashion within the bladder with a 26 [place] continuous-flow resectoscope identified the verumontanum identified the prostate had a very large obstructive prostate with large bilateral hypertrophy no significant median lobe inside the bladder identified the left and right ureteral orifice there is no tumors or stones within the bladder I then switched over to the large loop resectoscope and started resecting the name down on the floor towards the verumontanum and then resected the right lobe of the prostate all the way to the apex and resect the left lobe the prostate elevated apex and recent resected the roof of the prostate and then resected the apical tissue pulled back behind the sphincter sphincter was intact did a flow test had a wide open flow Ellik out all the chips out of the bladder obtained hemostasis with electrocautery and then put a catheter in the bladder with continuous irrigation the urine was crystal clear and is taken back to the PACU in good condition. Surgeon: Bennett Reid Type of Anesthesia: General Drains: 22fr 3 way Admit VTE Documentation VTE Present on Admission: No VTE Mechan Device Prophylaxis: SCD's VTE Pharm Prophylaxis ordered?: No
[2022-03-12] MEDS: Ciprofloxacin 500 MG Tablet PO (21:43)
--- NOTE | 2022-03-13 | PROS_PTH ---
PATIENT: MARISEL YU LOC: MS3 U#:[id number] AGE/SX: 72/M ROOM: [facility] [place] RE03/12/[address]: Dr. Bennett Reid MD : 1950 BED: 1 DIS: 03/13/2022 SPEC #: [id number] RECD: 03/15/22 06:42 STATUS: ZACKARY THOMAS #: [id number] BRIGETTE: 03/13/22 00:[address]: Bennett Reid DEPT: SURGICAL PATHOLOGY RECD BY: Stiven Srinivasan ENTERED: 03/15/22 08:53 SP TYPE: TURP OTHR DR: Dr. Moraima Merritt, DO Tissues: Prostate, NOS Procedures: Surgery Specimen Level IV HEADER OPERATION: Cysto, TUR prostate, Olympus PRE-OP DIAGNOSIS: BPH and obstruction TISSUE SUBMITTED: Prostate chips MICROSCOPIC DIAGNOSIS Prostate tissue, transurethral resection: Benign prostatic hyperplasia, glandular and stromal type. Focal acute and chronic inflammation. ARJUN:peter 03/16/2022 MICROSCOPIC DESCRIPTION Slides are reviewed. GROSS DESCRIPTION Received is one container labeled with the patient's name and designated prostate chips. The specimen consists of multiple irregular fragments of pink-copeland, rubbery, soft tissue that in aggregate weigh 19.9 gm and measure in aggregate 7 x 6 x 3 cm. Yarn Skeins Examiner tissue is submitted in ten cassettes. / ARJUN:peter 03/15/2022 TC:5 CPT: 92202
[2022-03-13 01:12] VITALS: BP 122/71; PULSE 54; RESP 18; TEMP 37.1; O2SAT 94
[2022-03-13 03:52] VITALS: BP 119/66; PULSE 61; RESP 18; TEMP 37.1; O2SAT 97
[2022-03-13 08:34] VITALS: BP 135/77; PULSE 59; RESP 16; TEMP 36.7; O2SAT 97
[2022-03-13] MEDS: Ciprofloxacin 500 MG Tablet PO (08:37)
== END 2022-03-13 11:58 | disposition home or self-care (01) ==
LOC: SDC 15:49 → MS3 15:49
PROVIDERS: Admitting Provider Urology; PCP Family Medicine; Visit Provider Urology
PROC: (CPT 52601; principal; 2022-03-12 13:20)
DX: N40.1 Benign prostatic hyperplasia with lower urinary tract symptoms (principal); N13.8 Other obstructive and reflux uropathy; G89.29 Other chronic pain; N52.9 Male erectile dysfunction, unspecified; E78.5 Hyperlipidemia, unspecified; Z79.899 Other long term (current) drug therapy; G25.0 Essential tremor; M19.90 Unspecified osteoarthritis, unspecified site; H91.90 Unspecified hearing loss, unspecified ear; R33.8 Other retention of urine
CPT/HCPCS: 52601; 88305; 93005; 99218; J7120; G0378; J2405

== ENCOUNTER → 2022-03-30 | Outpatient (CLI) | payer MEDICARE, OTHER, SELFPAY | END | disposition home or self-care (01) | LOC: LABSPEC 17:08 | PROVIDERS: PCP Family Medicine; Referring Provider Urology; Visit Provider Urology | DX: R31.9 Hematuria, unspecified (principal) | CPT/HCPCS: 87077; 87086; 87088; 87186 ==

== ENCOUNTER → 2022-06-29 | Outpatient (CLI) | payer MEDICARE, OTHER, SELFPAY ==
[2022-06-29 12:20] LABS: Absolute Lymphocyte Count 1.55 X10^3/uL (0.83-4.51); Absolute Neutrophil Count 2.9 X10^3/uL (2.0-7.7); Basophil# 0.03 X10^3/uL; Basophil% 0.6 % (0-1); Eosinophil# 0.05 X10^3/uL; Hematocrit 47.2 % (40-54); Hemoglobin 15.6 g/dL (13.0-16.5); Lymphocyte # 1.55 X10^3/ul (0.83-4.51); Lymphocyte % 30.7 % (19-41); Mean Corp Hgb Conc 33.1 g/dL (32-36); Mean Corpuscular Hgb 31.8 pg (27.0-32.0); Mean Corpuscular Volume 96.1 fL (80-94); Mean Platelet Vol. 10.6 fl (6.2-12.0); Monocyte# 0.53 X10^3/uL; Monocyte% 10.5 % (0-10); NRBC Flagged by Analyzer 0 % (0-5); Neutrophil # 2.88 X10^3/uL (2.7-7.7); Platelet Count 221 K/mm3 (150-450); RBC Distribution Width CV 12.8 % (11.6-14.6); RBC Distribution Width SD 45.8 fl (35.1-43.9); Red Blood Count 4.91 M/mm3 (4.6-6.2); White Blood Count 5.1 K/mm3 (4.4-11.0)
[2022-06-29 14:25] LABS: ALB/GLOB Ratio 1.2 RATIO (0.9-2.4); AST(SGOT) 28 U/L (15-37); Alanine Aminotransfer ALT/SGPT 28 U/L (16-61); Alkaline Phosphatase 53 U/L (45-117); Anion Gap 6 (5-15); BUN 18 mg/dL (7-18); BUN/Creat Ratio 20.5 RATIO (10-20); Calcium,Total 9.3 mg/dL (8.5-10.1); Chloride 107 mmol/L (98-107); Cholesterol 287 mg/dL (200); Creatinine, Serum 0.88 mg/dL (0.70-1.30); EST Glomerular Filtration Rate 90 mL/min (>60); Est Glom Filt Rate - Afr Amer 109 mL/min (>60); Globulin 3.4 g/dL (2.2-4.2); Glucose 93 mg/dL (74-106); High Density Lipoprotein 62 mg/dL; PSA,Total - Annual Screen 4.01 ng/mL (0.00-4.00); Potassium 4.1 mmol/L (3.5-5.1); Protein, Total 7.4 g/dL (6.4-8.2); Sodium Level 142 mmol/L (136-145); Triglycerides 98 mg/dL; Very Low Density Lipoprotein 20 mg/dL (5-40)
== END | disposition home or self-care (01) ==
LOC: BFHLAB 08:17
PROVIDERS: PCP Family Medicine; Visit Provider Family Medicine
DX: N40.0 Benign prostatic hyperplasia without lower urinary tract symptoms (principal); E78.5 Hyperlipidemia, unspecified; Z51.81 Encounter for therapeutic drug level monitoring; Z12.5 Encounter for screening for malignant neoplasm of prostate
CPT/HCPCS: 36415; 80053; 80061; 84153; 85025; G0103

== ENCOUNTER → 2023-07-04 | Outpatient (CLI) | payer MEDICARE, OTHER, SELFPAY ==
[2023-07-04 12:02] LABS: Absolute Lymphocyte Count 1.32 X10^3/uL (0.83-4.51); Absolute Neutrophil Count 2.2 X10^3/uL (2.0-7.7); Basophil# 0.02 X10^3/uL; Basophil% 0.5 % (0-1); Eosinophil# 0.07 X10^3/uL; Eosinophils% 1.7 % (0-5); Hematocrit 45.5 % (40-54); Hemoglobin 14.6 g/dL (13.0-16.5); Lymphocyte # 1.32 X10^3/ul (0.83-4.51); Mean Corp Hgb Conc 32.1 g/dL (32-36); Mean Corpuscular Hgb 32.1 pg (27.0-32.0); Mean Platelet Vol. 10.9 fl (6.2-12.0); Monocyte# 0.43 X10^3/uL; Monocyte% 10.4 % (0-10); NRBC Flagged by Analyzer 0 % (0-5); Neutrophil # 2.23 X10^3/uL (2.7-7.7); Neutrophil % 54.2 % (47-70); Platelet Count 212 K/mm3 (150-450); RBC Distribution Width CV 12.7 % (11.6-14.6); RBC Distribution Width SD 46.9 fl (35.1-43.9); Red Blood Count 4.55 M/mm3 (4.6-6.2); White Blood Count 4.1 K/mm3 (4.4-11.0)
[2023-07-04 12:20] LABS: ALB/GLOB Ratio 1.1 RATIO (0.9-2.4); AST(SGOT) 19 U/L (15-37); Alanine Aminotransfer ALT/SGPT 27 U/L (16-61); Albumin, Serum 3.8 g/dL (3.2-5.0); Alkaline Phosphatase 39 U/L (45-117); Anion Gap 6 (5-15); BUN 13 mg/dL (7-18); BUN/Creat Ratio 15.6 RATIO (10-20); Calcium,Total 9.1 mg/dL (8.5-10.1); Chloride 106 mmol/L (98-107); Cholesterol 261 mg/dL (200); Creatinine, Serum 0.84 mg/dL (0.70-1.30); EST Glomerular Filtration Rate 95 mL/min (>60); Est Glom Filt Rate - Afr Amer 115 mL/min (>60); Globulin 3.5 g/dL (2.2-4.2); Glucose 102 mg/dL (74-106); High Density Lipoprotein 63 mg/dL; PSA,Total - Annual Screen 2.22 ng/mL (0.00-4.00); Potassium 4.1 mmol/L (3.5-5.1); Protein, Total 7.3 g/dL (6.4-8.2); Sodium Level 140 mmol/L (136-145); Triglycerides 57 mg/dL; Very Low Density Lipoprotein 11 mg/dL (5-40)
== END | disposition home or self-care (01) ==
LOC: BFHLAB 08:12
PROVIDERS: PCP Family Medicine; Referring Provider Family Medicine; Visit Provider Family Medicine
DX: N40.0 Benign prostatic hyperplasia without lower urinary tract symptoms (principal); E78.5 Hyperlipidemia, unspecified; Z51.81 Encounter for therapeutic drug level monitoring; Z12.5 Encounter for screening for malignant neoplasm of prostate
CPT/HCPCS: 36415; 80053; 80061; 84153; 85025; G0103

== ENCOUNTER 2023-12-27 07:33 | Day surgery (SDC) | payer MEDICARE, OTHER, SELFPAY ==
[2023-12-27 07:50] VITALS: BP 106/79; PULSE 73; RESP 16; TEMP 36.6; O2SAT 97; BMI 24.5
[2023-12-27] MEDS: Lactated Ringers 1,000 ML 15 ML IV (07:59)
--- NOTE | 2023-12-27 08:06 | PCM.HP.STD ---
[facility] - General General Date of Admission: 06/10/20 Date of Service: 12/27/23 Chief Complaint: Personal history of colon polyps HPI Narrative MARISEL YU, is a 73 M who presents for surveillance colonoscopy today. He has a previous history of colon polyps. Previous colonoscopy was November 21, 2018. In addition his mother had colon cancer. He presents via open access today. No abdominal pain. No bright red blood per rectum or melena. He states that his health is otherwise been stable. [facility] Medical History (Updated 12/23/23 @ 13:07 by Michelle Lou) Alcohol use Arthritis Back pain BPH (benign prostatic hyperplasia) Chronic low back pain Erectile dysfunction Family history of colon cancer in mother Fatigue Former smoker Hyperlipemia Inguinal hernia of right side without obstruction or gangrene Loss of hearing Tremor, essential Wears contact lenses Wears glasses Home Medications ibuprofen 800 mg tablet 800 mg PO TID PRN Pain 11/15/18 [History Last Taken Unknown] omega-3 fatty acids-fish oil 360 mg-1,200 mg capsule (Fish Oil) 1 cap PO DAILY 10/12/23 [History Last Taken 12/17/23] propranolol 10 mg tablet 10 mg PO 1200 TREMOR 10/12/23 [History Last Taken 12/23/23] turmeric 400 mg capsule 400 mg PO DAILY 10/12/23 [History Last Taken Unknown] Allergy/AdvReac Type Severity Reaction Status Date / Time No Known Allergies Allergy Verified 12/27/23 07:49 Family History Mother Colon cancer Heart disease Surgical History (Updated 12/23/23 @ 13:07 by Michelle Lou) History of bowel resection History of right inguinal hernia repair (~06/2018) Hx of appendectomy Hx of colonoscopy Hx of hernia repair Hx of transurethral resection of prostate Social History Smoking Status: Former smoker second hand exposure: No alcohol intake: current alcohol intake frequency: a few times a month substance use type: does not use caffeine: Yes what type of physical activity do you participate in: other details: Dave frequency: 5-6 times per week seatbelt use: always ROS Constitutional Constitutional: Reports systems reviewed and no addt'l complaints, except as documented Cardiovascular Cardiovascular: Denies chest pain Respiratory/Chest Respiratory/Chest: Denies shortness of breath at rest Gastrointestinal Gastrointestinal: Denies abdominal pain, change in bowel habits, hematochezia or melena Vital Signs Vital Signs Vital Signs: 12/27/23 07:50 12/27/23 07:50 Temperature 98 F Temperature Source Temporal Pulse Rate 73 Respiratory Rate 16 Respiratory Pattern Normal Blood Pressure 106/79 Blood Pressure Mean 88 Blood Pressure Source Monitor Blood Pressure Position Semi-Fowlers Blood Pressure Location Right Arm Pulse Ox 97 Oxygen Delivery Method Room Air Weight Weight: 161 lb Body Mass Index (BMI) 24.5 Physical Exam Const alert, oriented x3 and no apparent distress General Appearance: cooperative and comfortable Eyes General Eye: normal appearance of both eyes Neck General: normal visual inspection Chest inspection of chest normal Resp Effort and Inspection: able to speak in complete sentences and symmetric chest movement Auscultation: clear to auscultation bilaterally Cardio regular rate and regular rhythm GI soft to palpation, non-tender and non-distended Extremity no calf tenderness Neuro oriented x3 Psych thought process normal Assessment & Plan Assessment/Plan (1) Personal history of colonic polyps: PLAN: 73-year-old gentleman with a personal history of colon polyps and a family history of colon cancer. He presents for surveillance colonoscopy via open access. He is aware of the technique, benefit, risk, alternatives. He has had an opportunity to ask and have questions answered. We will proceed as noted. Reji Jade M.D., F.A.C.S.
--- NOTE | 2023-12-27 08:30 | COLBX_PTH ---
PATIENT: MARISEL YU LOC: NEERAJ U#:[id number] AGE/SX: 73/M ROOM: RE12/27/[address]: Dr. Reji Jade MD : 1950 BED: DIS: 12/27/2023 SPEC #: [id number] RECD: 12/27/23 13:23 STATUS: ZACKARY MARTHA #: [id number] BRIGETTE: 12/27/23 08:[address]: Reji Jade DEPT: SURGICAL PATHOLOGY RECD BY: Charley Harry ENTERED: 12/27/23 13:45 SP TYPE: COLON BX OTHR DR: Dr. Moraima Merritt DO Tissues: A - Ascending colon B - Rectum, NOS Procedures: Surgery Specimen Level IV HEADER OPERATION: Colonoscopy- open access, polypectomy PRE-OP DIAGNOSIS: Personal history of colonic polyps TISSUE SUBMITTED: A- Mid ascending polyp biopsy, B- Mid rectum polyp MICROSCOPIC DIAGNOSIS A. Mid ascending polyp, biopsy: Fragments of tubular adenoma. B. Mid rectal polyp, biopsy: Hyperplastic polyp. / 12/28/23 MICROSCOPIC DESCRIPTION Slides are reviewed. GROSS DESCRIPTION A. Received in fixative is one container labeled with the patient's name and designated Mid ascending polyp biopsy. The specimen consists of multiple irregular fragments of light copeland soft tissue that in aggregate measure 0.5 x 0.2 x 0.1 cm. The specimen is totally submitted in one cassette. B. Received in fixative is one container labeled with the patient's name and designated Mid rectum polyp. The specimen consists of two irregular fragments of light copeland soft tissue that in aggregate measure 0.6 x 0.5 x 0.1 cm. The specimen is totally submitted in one cassette. / 12/27/23 TC:5 CPT: 37197e1
[2023-12-27 09:00] VITALS: BP 106/79; BP 84/65; PULSE 65; RESP 16; TEMP 36.4; O2SAT 94
--- NOTE | 2023-12-27 09:04 | OP.CCLET_ITS ---
12/27/2023 Moraima Merritt [address] [place] [address] Re : Colonoscopy procedure for [facility] Dear Dr. Merritt This procedure was performed on Wednesday, December 27, 2023. My impressions and recommendations are as follows: Impressions : - Non-thrombosed external hemorrhoids, non-thrombosed internal hemorrhoids and internal hemorrhoids that prolapse with straining, but spontaneously regress to the resting position (Grade II) found on digital rectal exam. - One 4 mm polyp in the mid ascending colon, removed with a cold biopsy forceps. Resected and retrieved. - One 6 mm polyp in the mid rectum, removed with a hot snare. Resected and retrieved. - Diverticulosis in the sigmoid colon and in the entire examined colon. Recommendations : - Discharge patient to home. - Resume previous diet. - Continue present medications. - Repeat colonoscopy in 5 years for surveillance. - Telephone my office for pathology results in 1 week. My findings are described in the full procedure note, which is enclosed. If I can be of further assistance, please feel free to contact me at Doctor phone number(s): Work: . Sincerely, Reji Jade MD 12/27/2023 9:03:43 AM This report has been signed electronically.
--- NOTE | 2023-12-27 09:04 | OP.COLON_ITS ---
Patient Name: Prudencio Hutchison Procedure Date: 12/27/2023 8:38 AM Date of : 1950 Age: 73 Procedure: Colonoscopy Indications: High risk colon cancer surveillance: Personal history of colonic polyps Providers: Reji Jade MD Referring MD: Moraima Merritt Medicines: See the Anesthesia note for documentation of the administered medications Patient Profile: Last Colonoscopy: October 2018. Complications: No immediate complications. Procedure: Pre-Anesthesia Assessment: - Prior to the procedure, a History and Physical was performed, and patient medications and allergies were reviewed. The patient's tolerance of previous anesthesia was also reviewed. The risks and benefits of the procedure and the sedation options and risks were discussed with the patient. All questions were answered, and informed consent was obtained. Prior Anticoagulants: The patient has taken no anticoagulant or antiplatelet agents. ASA Grade Assessment: II - A patient with mild systemic disease. After reviewing the risks and benefits, the patient was deemed in satisfactory condition to undergo the procedure. After I obtained informed consent, the scope was passed under direct vision. Throughout the procedure, the patient's blood pressure, pulse, and oxygen saturations were monitored continuously. The Colonoscope was introduced through the anus and advanced to the terminal ileum, with identification of the appendiceal orifice and IC valve. The colonoscopy was performed without difficulty. The patient tolerated the procedure well. The quality of the bowel preparation was good. The ileocecal valve and the appendiceal orifice were photographed. Scope In: 8:43:15 AM Scope Withdrawal Time 0 hours 10 minutes 46 seconds Scope Out: 8:56:43 AM Total Procedure Duration Time 0 hours 13 minutes 28 seconds Findings: The digital rectal exam findings include non-thrombosed external hemorrhoids, non-thrombosed internal hemorrhoids and internal hemorrhoids that prolapse with straining, but spontaneously regress to the resting position (Grade II). Pertinent negatives include normal prostate (size, shape, and consistency). A 4 mm polyp was found in the mid ascending colon. The polyp was sessile. The polyp was removed with a cold biopsy forceps. Resection and retrieval were complete. A 6 mm polyp was found in the mid rectum. The polyp was sessile. The polyp was removed with a hot snare. Resection and retrieval were complete. Multiple diverticula were found in the sigmoid colon and entire colon. Impression: - Non-thrombosed external hemorrhoids, non-thrombosed internal hemorrhoids and internal hemorrhoids that prolapse with straining, but spontaneously regress to the resting position (Grade II) found on digital rectal exam. - One 4 mm polyp in the mid ascending colon, removed with a cold biopsy forceps. Resected and retrieved. - One 6 mm polyp in the mid rectum, removed with a hot snare. Resected and retrieved. - Diverticulosis in the sigmoid colon and in the entire examined colon. Recommendation: - Discharge patient to home. - Resume previous diet. - Continue present medications. - Repeat colonoscopy in 5 years for surveillance. - Telephone my office for pathology results in 1 week. Procedure Code(s): --- Professional --- 10958, Colonoscopy, flexible; with removal of tumor(s), polyp(s), or other lesion(s) by snare technique 48418, 59, Colonoscopy, flexible; with biopsy, single or multiple Diagnosis Code(s): --- Professional --- Z86.010, Personal history of colonic polyps K64.1, Second degree hemorrhoids K64.4, Residual hemorrhoidal skin tags D12.2, Benign neoplasm of ascending colon D12.8, Benign neoplasm of rectum K57.30, Diverticulosis of large intestine without perforation or abscess without bleeding CPT copyright 2021 [employer]. All rights reserved. The codes documented in this report are preliminary and upon metallurgist helper review may be revised to meet current compliance requirements. Reji Jade MD 12/27/2023 9:03:43 AM This report has been signed electronically. Number of Addenda: 0 Note Initiated On: 12/27/2023 8:38 AM
[2023-12-27 09:05] VITALS: BP 106/79; BP 89/62; PULSE 62; RESP 16; O2SAT 94
[2023-12-27 09:10] VITALS: BP 106/79; BP 94/67; PULSE 55; RESP 16; O2SAT 96
[2023-12-27 09:16] VITALS: BP 106/79; BP 94/65; PULSE 61; RESP 16; TEMP 36.7; O2SAT 96
[2023-12-27 09:34] VITALS: BP 106/79
== END 2023-12-27 09:55 | disposition home or self-care (01) ==
LOC: EN 07:35 → AC 07:36
PROVIDERS: PCP Family Medicine; Referring Provider Family Medicine; Visit Provider Surgery
PROC: 0DJD8ZZ Inspection of Lower Intestinal Tract, Via Natural or Artificial Opening Endoscopic (ICD-10-PCS; CPT 45378; principal; 2023-12-27 08:25)
DX: Z12.11 Encounter for screening for malignant neoplasm of colon (principal); D12.2 Benign neoplasm of ascending colon; K64.4 Residual hemorrhoidal skin tags; K64.1 Second degree hemorrhoids; K62.1 Rectal polyp; K57.30 Diverticulosis of large intestine without perforation or abscess without bleeding; G25.0 Essential tremor; Z79.899 Other long term (current) drug therapy; Z86.010 Personal history of colon polyps; Z80.0 Family history of malignant neoplasm of digestive organs; Z87.891 Personal history of nicotine dependence
CPT/HCPCS: 45385; 45380; 88305; J7120; J2405

== ENCOUNTER → 2024-07-26 | Outpatient (CLI) | payer MEDICARE, OTHER, SELFPAY ==
[2024-07-26 12:30] LABS: Absolute Lymphocyte Count 1.39 X10^3/uL (0.83-4.51); Absolute Neutrophil Count 2.5 X10^3/uL (2.0-7.7); Basophil# 0.04 X10^3/uL; Basophil% 0.9 % (0-1); Eosinophil# 0.07 X10^3/uL; Eosinophils% 1.5 % (0-5); Hematocrit 45.1 % (40-54); Hemoglobin 15.2 g/dL (13.0-16.5); Lymphocyte # 1.39 X10^3/ul (0.83-4.51); Lymphocyte % 30.7 % (19-41); Mean Corp Hgb Conc 33.7 g/dL (32-36); Mean Corpuscular Hgb 32.9 pg (27.0-32.0); Mean Corpuscular Volume 97.6 fL (80-94); Mean Platelet Vol. 10.9 fl (6.2-12.0); Monocyte# 0.51 X10^3/uL; Monocyte% 11.3 % (0-10); NRBC Flagged by Analyzer 0 % (0-5); Neutrophil % 55.2 % (47-70); Platelet Count 220 K/mm3 (150-450); RBC Distribution Width CV 13.1 % (11.6-14.6); RBC Distribution Width SD 46.7 fl (35.1-43.9); Red Blood Count 4.62 M/mm3 (4.6-6.2); White Blood Count 4.5 K/mm3 (4.4-11.0)
[2024-07-26 13:09] LABS: ALB/GLOB Ratio 1.1 RATIO (0.9-2.4); AST(SGOT) 26 U/L (15-37); Alanine Aminotransfer ALT/SGPT 24 U/L (16-61); Alkaline Phosphatase 45 U/L (45-117); Anion Gap 6 (5-15); BUN 15 mg/dL (7-18); BUN/Creat Ratio 16.9 RATIO (10-20); Calcium,Total 9.2 mg/dL (8.5-10.1); Chloride 110 mmol/L (98-107); Cholesterol 304 mg/dL (200); Creatinine, Serum 0.89 mg/dL (0.70-1.30); EST Glomerular Filtration Rate 88 mL/min (>60); Est Glom Filt Rate - Afr Amer 107 mL/min (>60); Globulin 3.5 g/dL (2.2-4.2); Glucose 101 mg/dL (74-106); High Density Lipoprotein 67 mg/dL; PSA,Total - Annual Screen 1.84 ng/mL (0.00-4.00); Protein, Total 7.5 g/dL (6.4-8.2); Sodium Level 141 mmol/L (136-145); Triglycerides 80 mg/dL; Very Low Density Lipoprotein 16 mg/dL (5-40)
== END | disposition home or self-care (01) ==
LOC: BFHLAB 08:19
PROVIDERS: PCP Family Medicine; Referring Provider Family Medicine; Visit Provider Family Medicine
DX: N40.0 Benign prostatic hyperplasia without lower urinary tract symptoms (principal); E78.5 Hyperlipidemia, unspecified; Z51.81 Encounter for therapeutic drug level monitoring
CPT/HCPCS: 36415; 80053; 80061; 84153; 85025; G0103

== ENCOUNTER → 2024-08-02 | Outpatient (CLI) | payer MEDICARE, OTHER, SELFPAY | END | disposition home or self-care (01) | PROVIDERS: PCP Family Medicine; Referring Provider Family Medicine; Visit Provider Family Medicine | DX: E78.5 Hyperlipidemia, unspecified (principal) | CPT/HCPCS: 36415 ==

== ENCOUNTER → 2024-08-31 | Outpatient (CLI) | payer MEDICARE, OTHER, SELFPAY ==
--- NOTE | 2024-08-31 06:58 | CT_ITS ---
STUDY: CT CHEST WITHOUT CONTRAST REASON FOR EXAM: Male, 74 years old. HYPERLIPIDEMIA RADIATION DOSAGE (If Supplied By Facility): CTDIvol = ( 12.19 ) mGy, DLP = ( 219.42 ) mGycm TECHNIQUE: Transaxial imaging was performed without the administration of intravenous contrast material. Cardiac over read examination. Individualized dose optimization techniques were used for this CT. COMPARISON: No relevant priors. FINDINGS: CHEST Minimal increased markings in the posterior medial segment of the right lower lobe suggestive of scarring. Minimal scarring at the left lung base. There is no demonstrated pleural abnormality. Normal heart and pericardium. No coronary artery calcification is seen. Normal mediastinum. Normal hilar regions. Normal unenhanced pulmonary arteries. Normal aorta arch and descending thoracic aorta. There are degenerative changes of the thoracic spine. Small hiatal hernia. CT/Limited Chest CT Cardiac Only IMPRESSION: No significant coronary artery calcification. Bibasilar linear scarring slightly more prominent at the right lung base. Electronically Signed: Chris Davis MD at 9:19 EST ,
--- NOTE | 2024-08-31 09:43 | CA.SCORE ---
Calcium Scoring Date of Study:: 08/31/24 Indications Indications: Hyperlipidemia Coronary Calcium Scoring: High-resolution Computed Tomographic imaging of the chest was performed on [08/31/2024], with particular attention paid to the coronary arteries. Images from the examination were analyzed for the presence and extent of coronary artery calcification , using coronary calcium quantification software. The patient tolerated the procedure well and there were no complications. The results of the coronary calcification analysis are provided below. Findings Coronary Artery Left Main (LM): 0 Left Anterior Descending (LAD): 0 Left Circumflex (LCX): 0 Right Coronary Artery (RCA): 0 Total Agatston Score: 0 Percentile Rankin Calcium Scoring Interpretation: Different methods to categorize the overall amount of coronary plaque. Overall amount CAC SIS Visual of coronary plaque P1 Mild -100 <2 1-2 vessels with mild amount of plaque P2 Moderate 101-300 3-4 1-2 vessels with moderate amount, 3 vessels with mild amount of plaque P3 Severe 301-999 5-7 3 vessels with moderate amount, 1 vessel with severe amount of plaque P4 Extensive >1000 >8 2-3 vessels with severe amount of plaque Conclusion: No atherosclerotic plaquing noted
== END | disposition home or self-care (01) ==
PROVIDERS: PCP Family Medicine; Referring Provider Family Medicine; Visit Provider Family Medicine
DX: E78.5 Hyperlipidemia, unspecified (principal); Z82.49 Family history of ischemic heart disease and other diseases of the circulatory system
CPT/HCPCS: 75571; 76380

== ENCOUNTER → 2025-04-25 | Outpatient (CLI) | payer MEDICARE, OTHER, SELFPAY ==
--- NOTE | 2025-04-25 14:26 | VDLE_ITS ---
Reason For Study Reason For Study: Left leg edema RIGHT LEFT CFV is compressible, spontaneous, phasic, competent GSV is normal. and demonstrates normal augmentation. Acute deep vein thrombosis is noted in the CFV, FV, Procedure PopV, T/P Trunk, PTV, PeroV, and GastrocV. It is This is a venous duplex using B-mode, color flow and dilated and NONCOMPRESSIBLE. spectral Doppler. Exam performed in department. A preliminary report was called and/or faxed to Dr. Merritt. VL/Venous Duplex US, Unilateral Interpretation Summary Acute deep vein thrombosis noted in the left common femoral vein, femoral vein, popliteal vein, tibioperoneal trunk vein, posterior tibial vein, peroneal vein, gastrocnemius vein. Ordering Physician: Moraima Merritt Referring Physician: Moraima Merritt Performed By: Karen Chavez RVT
== END | disposition home or self-care (01) ==
LOC: CVS 14:25
PROVIDERS: PCP Family Medicine; Referring Provider Family Medicine; Visit Provider Family Medicine
DX: I82.409 Acute embolism and thrombosis of unspecified deep veins of unspecified lower extremity (principal); R60.0 Localized edema
CPT/HCPCS: 93971

== ENCOUNTER → 2025-07-11 | Outpatient (CLI) | payer MEDICARE, OTHER, SELFPAY | END | disposition home or self-care (01) | LOC: CVS 12:49 | PROVIDERS: PCP Family Medicine; Referring Provider Family Medicine; Visit Provider Family Medicine | DX: M79.605 Pain in left leg (principal); I82.432 Acute embolism and thrombosis of left popliteal vein | CPT/HCPCS: 93971 ==

== ENCOUNTER → 2025-08-01 | Outpatient (CLI) | payer MEDICARE, OTHER, SELFPAY ==
--- OUTSIDE RECORDS SUMMARY | 2025-08-01 09:02 | XMS RPT_ITS | CCD ---
Author Organization [facility] CliniSyvt Care Team Providers Care Mud Temperer Name Role Phone Henrry Grubbs Primary Care Provider Moraima Merritt DO Primary Care Provider Simone Ascencio Primary Care Provider Simone Ascencio Primary Care Provider [phone] Brandon Bowie MD Unavailable [phone] Moraima Merritt Primary Care Provider Destiney Correa Attending Provider Unavailable Dr. Moraima Merritt Referring Provider Dr. Reji Jade Attending Provider Dr. Reji Jade Other Provider Simone Ascencio Primary Care Provider Brandon Bowie MD Unavailable Dr. Moraima Merritt DO Primary Care Provider [phone] Dr. Moraima Merritt DO Attending Provider Dr. Moraima Merritt DO Referring Provider [phone] Dr. Priyank Atkins MD Attending Provider Priyank Atkins Attending Unavailable Malys, Moraima Referring Unavailable Malys, Moraima Primary Care Unavailable Malys, Moraima Attending Unavailable Malys, Moraima Referring Unavailable Malys, Moraima Primary Care Unavailable Malys, Moraima Attending Unavailable Malys, Moraima Referring Unavailable Malys, Moraima Primary Care Unavailable Malys, Moraima Referring Unavailable Malys, Moraima Primary Care Unavailable Priyank Atkins Attending Unavailable Malys, Moraima Attending Unavailable Malys, Moraima Referring Unavailable Malys, Moraima Primary Care Unavailable Nicolás Judd Attending Unavailable Malys, Moraima Referring Unavailable Malys, Moraima Primary Care Unavailable Malys, Moraima Consulting Unavailable Malys, Moraima Referring Unavailable Malys, Moraima Attending Unavailable Malys, Moraima Primary Care Unavailable Malys, Moraima Primary Care Unavailable Marie Short Attending Unavailable Medications Current Medications Medication Drug Class(es) Dates Sig (Normalized) Sig (Original) alprostadil 0.02 mg injection (2 sources) Prostaglandin Analog, Prostaglandin E1 Agonist Start: 08-03-2023 Alprostadil, Vasodilator, 20 MCG reconstituted solution Indications: Erectile Dysfunction Intracavernosal injection of Trimix as directed for erectile dysfunction. Inject 0.3mL or 30 units. Okay to increase by 0.02 or 2 units as needed for desired response up to 0.5 1 each 5 08/03/2023 Active cyclobenzaprine hydrochloride 10 mg oral tablet (5 sources) Muscle Relaxant Start: 08-11-2011 Cyclobenzaprine Active 10 MG PO NEEDED June 15, 2018 8:28am take 5 mg by mouth t hree times daily as needed for muscle spasms cyclobenzaprine (Flexeril) 10 MG tablet Take 5 mg by mouth 3 times daily as needed for muscle spasms. Active Comment on above: Take by mouth. Take one(1) tablet three times daily. as needed. docosahexaenoic acid 120 mg / eicosapentaenoic acid 180 mg oral capsule (2 sources) take 1 capsule by mouth in the morning omega-3 (fish oil) 1000 MG capsule Take 2 g by mouth in the morning. Active docosahexaenoic acid 144 mg / eicosapentaenoic acid 216 mg / vitamin e 2 unt oral capsule (2 sources) Start: 10-12-19 24 [place]-3 Fatty Acids-Fish Oil (Fish Oil) 360-1,200 mg capsule Active 1 NMA PO DAILY October 12, 2023 1:00am ibuprofen 800 mg oral tablet (11 sources) Nonsteroidal Anti-inflammatory Drug Start: 08-11-20 11 take 1 tablet by mouth three times daily as needed for pain Ibuprofen 800 MG tablet Active 800 mg PO THREE TIMES A DAY as needed for Pain November 15, 2018 1:00am take 1 tablet by nette every six hours as needed ibuprofen 200 MG tablet Take 200 mg by mouth every 6 hours as needed. Active Comment on above: Take by mouth. Take one(1) tablet three times daily. as needed propranolol hydrochloride 10 mg oral tablet (4 sources) beta-Adrenergic Mackenzie Start: 10-12-2023 Propranolol 10 mg tablet Active 10 mg PO 1200 October 12, 2023 1:00am TREMOR Start: 2023 take 1 capsule by mo uth once daily propranolol LA (Inderal LA) 60 MG 24 hr capsule TAKE 1 CAPSULE BY MOUTH ONCE DAILY AT NIGHT 2023 Active Syringe/Needle, Disp, (SYRINGE 3CC/23GX1") 23G X 1" 3 ML MISC (1 source) Start: 11-30-2021 Syringe/Needle , Disp, (SYRINGE 3CC/23GX1") 23G X 1" 3 ML MISC Indications: ED (erectile dysfunction) of organic origin 1 actuation by Does not apply route every 14 days 1 each 3 11/30/2021 Active Turmeric extract (2 sources) Start: 10-12-2023 take 1 capsule by mouth once daily Turmeric 400 mg capsule Active 400 mg PO DAILY October 12, 2023 1:00am Start: 10-12-2023 take 400 mg by mouth once traci y Turmeric Active 400 MG PO DAILY October 12, 2023 1:00am Completed/Discontinued Medications Medication Drug Class(es) Dates Sig (Normalized) Sig (Original) acetaminophen 325 mg / HYDROcodone bitartrate 5 mg oral tablet (20 sources) Opioid Agonist Start: 11-15-2018 End: 03-12-2022 Hydrocodone-Acetami nophen 5 MG-32 tablet Discontinued 1 {tbl} PO Q4H as needed for Pain November 15, 2018 1:00am March 12, 2022 3:24pm Start: 11-15-2018 End: 03-12-2022 take 1 tablet by mouth every four hours Hydrocodone-Acetaminophen Discontinued 1 TABLET PO Q4H November 15, 2018 1:00am March 12, 2022 3:24pm Start: 12-26-2013 End: 06-29-2018 Hydrocodone-Acetaminophen 1 TABLET tablet Discontinued 1 - 2 {tbl} PO EVERY 4 HOURS NEEDED as needed for Pain 8 3 0 June 26, 2018 10:24am June 28, 2018 12:00am June 29, 2018 12:08am Postoperative pain Other acute postprocedural pain Start: 12-26-2013 End: 06-29-2018 take 1 tablet by mouth every four hours as needed Hydrocodone-Acetaminophen Discontinued 1 - 2 TABLET PO EVERY 4 HOURS NEEDED 8 3 June 26, 2018 10:24am June 29, 2018 12:08am atorvastatin 10 mg oral tablet (8 sources) HMG-CoA Reductase Inhibitor Start: 12-26-2013 End: 06-15-2018 take 1 tablet by mouth at bedtime Atorvastatin 10 MG tablet Discontinued 10 mg PO AT BEDTIME December 26, 2013 12:00am June 15, 2018 8:28am Start: 08-11-2011 take 1 tablet by nette th once daily atorvastatin (LIPITOR) 20 mg ORAL tablet Take 1 tablet by mouth once daily. 0 08/11/2011 Active Comment on above: Take 1 tablet by nette th once daily. finasteride 5 mg oral tablet (5 sources) 5-alpha Reductase Inhibitor Start: 2 End: 2 take 1 tablet by mouth once daily Finasteride 5 mg Tablet Discontinued 5 mg PO DAILY March 05, 2022 12:00am March 12, 2022 3:24pm tamsulosin hydrochloride 0.4 mg oral capsule (5 sources) alpha-Adrenergic Mackenzie Start: 2 End: 2 take 1 capsule by mouth twice daily Tamsulosin (Flomax) 0.4 mg Capsule Discontinued 0.4 mg PO TWICE A DAY March 05, 2022 12:00am March 12, 2022 3:24pm therapeutic multivitamin ORAL tablet (1 source) Start: 1 take 1 tablet by mouth once daily therapeutic multivitamin ORAL tablet Take 1 tablet by mouth once daily. 0 08/11/2011 Active Comment on above: Take 1 tablet by nette th once daily. Problems Active Problems Problem Classification Problem Date Documented Da te Episodic/Chronic Abdominal hernia (7 sources) Right inguinal hernia ; Translations: [Unilateral inguinal hernia, without obstruction or gangrene, not specified as recurrent] 11-21-2018 Episodic Disorders of lipid metabolism (9 sources) Hyperlipidemia; Translations: [Hyperlipidemia, unspecified] Onset: 10-25-2024 11-21-2018 Chronic Diverticulosis and diverticulitis (1 source) Diverticulosis of colon; Translations: [Diverticulosis of large intestine without perforation or abscess without bleeding] Onset: 10-12-2011 10-12-2011 Chronic Gastrointestinal hemorrhage (1 source) Hematochezia; Translations: [Melena] 08-11-2011 Episodic Genitourinary symptoms and ill-defined conditions (3 sources) Urge incontinence of urine; Translations: [Urge incontinence] Onset: 10-07-2021 10-07-2021 Chronic Genitourinary symptoms and ill-defined conditions (16 sources) Acute retention of urine ; Translations: [Other retention of urine] Onset: 10-07-2021 10-07-2021 Episodic Hyperplasia of prostate (11 sources) Benign prostatic hyperplasia; Translations: [Benign prostatic hyperplasia without lower urinary tract symptoms] Onset: 10-07-2021 10-07-2021 Chronic Malaise and fatigue (7 sources) Fatigue; Translations: [Other fatigue] 11-21-2018 Episodic Other aftercare (1 source) Encounter for therapeutic drug level monitoring; Translations: [Encounter for therapeutic drug level monitoring] Onset: 07-30-2025 Episodic Other and unspecified benign neoplasm (7 sources) History of polyp of colon; Translations: [Personal history of colonic polyps] 11-21-2018 Episodic Other and unspecified benign neoplasm (1 source) Personal history of colonic polyps; Translations: [Personal history of colonic polyps] 12-27-2023 Episodic Other connective tissue disease (1 source) Pain in left leg; Translations: [Pain in left leg] Onset: 07-20-2025 Episodic Other hereditary and degenerative nervous system conditions (7 sources) Essential tremor; Translations: [Essential tremor] 11-21-2018 Chronic Comment on above: HANDS/FAIRLY CONTROL LED WITH MED Other male genital disorders (7 sources) Male erectile dysfunction, unspecified; Translations: [Erectile dysfunction] 11-21-2018 Chronic Other male genital disorders (4 sources) Secondary erectile dysfunction; Translations: [Male erectile dysfunction, unspecified] Onset: 10-07-2021 10-07-2021 Chronic Other screening for suspected conditions (not mental disorders or infectious disease) (6 sources) Raised prostate specific antigen; Translations: [Elevated prostate specific antigen [PSA]] Onset: 10-07-2021 Episodic Residual codes; unclassified (7 sources) History of excision of intestinal structure; Translations: [Acquired absence of other specified parts of digestive tract] 11-21-2018 Episodic Comment on above: 11-12-11 Residual codes; unclassified (7 sources) History of hernia repair; Translations: [Other specified postprocedural states] 11-21-2018 Episodic Comment on above: X2 Residual codes; unclassified (7 sources) History of colonoscopy; Translations: [Other specified postprocedural states] 11-21-2018 Episodic Comment on above: 11-21-18 with Tubular Adenoma and 2013 Spondylosis; intervertebral disc disorders; other back problems (8 sources) Backache; Translations: [Dorsalgia, unspecified] 08-11-2011 Episodic Past or Other Problems Problem Classification Problem Date Documented Da te Episodic/Chronic Other and unspecified benign neoplasm (1 source) Benign neoplasm of colon; Translations: [Benign neoplasm of colon, unspecified] Onset: 2 10-12-2011 Episodic Phlebitis; thrombophlebitis and thromboembolism (1 source) Acute embolism and thrombosis of unspecified deep veins of unspecified lower extremity; Translations: [Acute embolism and thrombosis of unspecified deep veins of unspecified lower extremity] Onset: 5 Episodic Residual codes; unclassified (1 source) Family history of malignant neoplasm of gastrointestinal tract; Translations: [Family history of malignant neoplasm of digestive organs] Onset: 1 08-11-2011 Episodic Residual codes; unclassified (1 source) Family history of ischemic heart disease and other diseases of the circulatory system; Translations: [Family history of ischemic heart disease and other diseases of the circulatory system] Onset: 5 Episodic Results Test Name Value Interpretation Reference Range Facility Venous Duplex US, Unilateral on 07-11-2025 Venous Duplex US, Unilateral [facility] [address] [place] [address] Venous Duplex US, Unilateral 07/11/25 1259 MR#: [id number] Acct: [id number] Name: PRUDENCIO HUTCHISON Rep #: [id number] : 1950 75 From: Priyank Atkins MD Attending Dr: Dr. Moraima Merritt DO Status: REG CL I Ordering Dr: Moraima Merritt DO Date: 07/11/25 Location: CVS Sex: M C Admitted: Reason For Study Reason For Study: HX LLE DVT / PAIN RIGHT LEFT FV is compressible, spontaneous, phasic, competent GSV is normal. and demonstrates normal augmentation. CFV is compressible, spontaneous, phasic, competent, Procedure and demonstrates normal augmentation. Exam performed in department. Prox and Mid FV is compressible, spontaneous, phasic, This is a venous duplex using B-mode, color flow and competent and demonstrates normal augmentation. spectral Doppler. Distal Femoral Vein appears dilated and The exam was diagnostic. NONCOMPRESSIBLE. COMPARE TO STUDY 04/25/2025. Acute deep vein thrombosis is noted in the POP V. It is dilated and NONCOMPRESSIBLE. Acute deep vein thrombosis is noted in the T/P Trunk. It is dilated and NONCOMPRESSIBLE. Acute deep vein thrombosis is noted in the PTV. It is dilated and NONCOMPRESSIBLE. Acute deep vein thrombosis is noted in the Per V. It is dilated and NONCOMPRESSIBLE. VL/Venous Duplex US, Unilateral Interpretation Summary Acute deep vein thrombosis noted in the left femoral vein, popliteal vein, tibioperoneal trunk vein, posterior tibial vein, peroneal vein. Ordering Physician: Moraima Merritt Referring Physician: Moraima Merritt Performed By: Stephan Palacios, [facility] 07/15/25 1047 Date Priyank Atkins MD CC: Dr. Moraima Merritt DO Date Dictated: 07/11/25 1259 Date Transcribed: 07/15/251046 Fluid Pump Operator: Signed Normal [facility] Venous Duplex US, Unilateral on 04-25-2025 Venous Duplex US, Unilateral [facility] [address] [place] [address] Venous Duplex US, Unilateral 04/25/25 1450 MR#: [id number] Acct: [id number] Name: PRUDENCIO HUTCHISON Rep #: [id number] : 1950 75 From: Priyank Atkins MD Attending Dr: Dr. Moraima Merritt, DO Status: REG CL I Ordering Dr: Moraima Merritt DO Date: 04/25/25 Location: CVS Sex: M C Admitted: Reason For Study Reason For Study: Left leg edema RIGHT LEFT CFV is compressible, spontaneous, phasic, competent GSV is normal. and demonstrates normal augmentation. Acute deep vein thrombosis is noted in the CFV, FV, Procedure PopV, T/P Trunk, PTV, PeroV, and GastrocV. It is This is a venous duplex using B-mode, color flow and dilated and NONCOMPRESSIBLE. spectral Doppler. Exam performed in department. A preliminary report was called and/or faxed to Dr. Merritt. VL/Venous Duplex US, Unilateral Interpretation Summary Acute deep vein thrombosis noted in the left common femoral vein, femoral vein, popliteal vein, tibioperoneal trunk vein, posterior tibial vein, peroneal vein, gastrocnemius vein. Ordering Physician: Moraima Merritt Referring Physician: Moraima Merritt Performed By: Karen Chavez RVT 04/25/25 1544 Date Priyank Atkins MD CC: Dr. Moraima Merritt DO Date Dictated: 04/25/251449 Date Transcribed: 04/25/251543 Fluid Pump Operator: Signed Janes [facility] Venous duplex ultrasound rep ortOrdered By: Priyank Atkins on 04-25-2025 US Vein [facility] [address] [place] [address] Venous Duplex US, Unilateral 04/25/251449 MR#: [id number] Acct: [id number] Name: PRUDENCIO HUTCHISON Rep #:[id number] : 1950 75 From: Priyank Wisdom Attending Dr: Dr. Moraima Merritt DO atus: REG CLI Ordering Dr: Moraima Merritt DO Date: 03/28 10/20 Location: CVS Sex: M C Admitted: Reason For Study Reason For Study: Left leg edema RIGHT LEFT CFV is compressible, spontaneous, phasic, competent GSV is normal. and demonstrates normal augmentation. Acute deep vein thrombosis is noted in the CFV, FV, Procedure PopV, T/P Trunk, PTV, PeroV, and GastrocV. It is This is a venous duplex using B-mode, color flow and dilated and NONCOMPRESSIBLE. spectral Doppler. Exam performed in department. A preliminary report was called and/or faxed to Dr. Merritt. VL/Venous Duplex US, Unilateral Interpretation Summary Acute deep vein thrombosis noted in the left common femoral vein, femoral vein, popliteal vein, tibioperoneal trunk vein, posterior tibial vein, peroneal vein, gastrocnemius vein. Ordering Physician: Moraima Merritt Referring Physician: Moraima Merritt Performed By: Karen Chavez RVT 04/25/25 1544 Date _ Priyank Atkins MD CC: Dr. Moraima Merritt DO ~ Date Dictated: 07/31/25 1450 Date Transcribed: 04/25/25 1544 Fluid Pump Operator: Signed [facility] Work Phone: Coronary Angiography CTon Coronary Angiography CT [facility] Services [address] [place] [address] 08/31/24 0943 MR#: [id number] Acct: [id number] Name: PRUDENCIO HUTCHISON Rep #: [id number] : 1950 74 From: Nicolás Judd MD PCP: Dr. Moraima Merritt, DO Status:REG CLI Y Location: CT Calcium Scoring Date of Study:: 08/31/24 Indications Indications: Hyperlipidemia Coronary Calcium Scoring: High-resolution Computed Tomographic imaging of the chest was performed on [08/31/2024], with particular attention paid to the coronary arteries. Images from the examination were analyzed for the presence and extent of coronary artery calcification , using coronary calcium quantification software. The patient tolerated the procedure well and there were no complications. The results of the coronary calcification analysis are provided below. Findings Coronary Artery Left Main (LM): 0 Left Anterior Descending (LAD): 0 Left Circumflex (LCX): 0 Right Coronary Artery (RCA): 0 Total Agatston Score: 0 Percentile Rankin Calcium Scoring Interpretation: Different methods to categorize the overall amount of coronary plaque. Overall amount CAC SIS Visual of coronary plaque P1 Mild -100 <2 1-2 vessels with mild amount of plaque P2 Moderate 101-300 3-4 1-2 vessels with moderate amount, 3 vessels with mild amount of plaque P3 Severe 301-999 5-7 3 vessels with moderate amount, 1 vessel with severe amount of plaque P4 Extensive >1000 >8 2-3 vessels with severe amount of plaque Conclusion: No atherosclerotic plaquing noted 08/31/24 0944 Date Nicolás Judd MD Cosigner Signature (if applicable): Date CC: Dr. Nicolás Judd MD; Dr. Moraima Merritt DO Signed Normal [facility] Limited Chest CT Cardiac Onl yon 08-31-[address] Cardiac Only [facility] [address] [place] [address] Cardiac Only MR#: [id number] Acct: [id number] Name: PRUDENCIO HUTCHISON Rep #: [id number] : 1950 M 74 From: Chris wilkinson MD PCP: Dr. Moraima Merritt DO Status: [facility] Study: Limited Chest CT Cardiac Only Date of Exam: Exam# [id number] Ordering Dr: Moraima Merritt DO [id number] STUDY: CT CHEST WITHOUT CONTRAST REASON FOR EXAM: Male, 74 years old. HYPERLIPIDEMIA RADIATION DOSAGE (If Supplied By Facility): CTDIvol = ( 12.19 ) mGy, DLP = ( 219.42 ) mGycm TECHNIQUE: Transaxial imaging was performed without the administration of intravenous contrast material. Cardiac over read examination. Individualized dose optimization techniques were used for this CT. COMPARISON: No relevant priors. FINDINGS: CHEST Minimal increased markings in the posterior medial segment of the right lower lobe suggestive of scarring. Minimal scarring at the left lung base. There is no demonstrated pleural abnormality. Normal heart and pericardium. No coronary artery calcification is seen. Normal mediastinum. Normal hilar regions. Normal unenhanced pulmonary arteries. Normal aorta arch and descending thoracic aorta. There are degenerative changes of the thoracic spine. Small hiatal hernia. CT/Limited Chest CT Cardiac Only IMPRESSION: No significant coronary artery calcification. Bibasilar linear scarring slightly more prominent at the right lung base. Electronically Signed: Chrsi Davis MD at 9:19 EST , CC: Dr. Moraima Merritt, Fluid Pump Operator: Signed [facility] TEST Normal [facility] Comment on above: Order Comment: [id number] REDSEPRT [id number] [id number] Result Comment: TEST RESULTS LIMITS Apolipoprotein B 171 High mg/dL <90 Desirable < 90 Borderline High 90 - 99 High 100 - 130 Very High >130 ASCVD RISK THERAPEUTIC TARGET CATEGORY APO B (mg/dL) Very High Risk <80 (if extreme risk <70) High Risk <90 Moderate Risk <90 TESTING PERFORMED AT [facility]. ORIGINAL REPORT ON FILE IN LAB CONTAINS ADDITIONAL TEST SITE INFORMATION. Performed By: #### L [phone] #### [facility] [address] [place], [place], [address] 36on 08-06-2024 36 The patient called in stating he has an appt 08.08.[address] Bowie but would like to cancel. He states the injections do not work any more and he no longer needs the medicine. Appointment was cancelled per patient request. Normal [facility] Absolute lymphocyte countOrd ered By: Moraima Merritt on 07-04-2023 Lymphocytes Auto (Unsp spec) [#/Vol] 1.32 10*3/uL 0.83-4.51 [facility] Basophil percentageOrdered B y: Moraima Merritt on 07-04-2023 Basophils/100 WBC (Bld) 0.5 % 0-1 [facility] Bilirubin [Mass/Vol] 0.40 mg/dL 0.20-1.00 [facility] Comment on above: For patients on eltr ombopag therapy, use of Dimension [place] TBIL is not recommended. Chloride [Moles/Vol] 106 mmol/L 98-107 [facility] Cholesterol [Mass/Vol] 261 mg/dL <200 [facility] Comment on above: <200 mg/dL Desirable 200-240 mg/dL Borderline >240 mg/dL High Risk Eosinophils/100 WBC (Bld) 1.7 % 0-5 [facility] Glucose [Mass/Vol] 102 mg/dL 74-106 [facility] Comment on above: Fasting Glucose resu lt from 100 to 125 mg/dL suggests IMPAIRED HOMEOSTASIS per A.D.A. criteria. Neutrophils (Bld) [#/Vol] 2.2 10*3/uL 2.0-7.7 [facility] Neutrophils/100 WBC (Bld) 54.2 % 47-70 [facility] Potassium [Moles/Vol] 4.1 mmol/L 3.5-5.[address] [facility] Protein [Mass/Vol] 7.3 g/dL 6.4-8.2 [facility] Sodium [Moles/Vol] 140 mmol/L 136-145 [facility] Triglyceride [Mass/Vol] 57 mg/dL <199 [facility] Comment on above: The drugs N-Acetylcy steine and Metamizole may falsely depress this assay.Serum Triglycerides Reference Interval Normal <150 mg/dL Borderline high 150 - 199 mg/dL High 200 - 499 mg/dL Very High > or = 500 mg/dL WBC (Bld) [#/Vol] 4.1 10*3/uL 4.4-11.0 [facility] Blood erythrocytes count (nu mber/volume)Ordered By: Moraima Merritt on 07-04-2023 RBC (Bld) [#/Vol] 4.55 10*6/uL 4.6-6.2 [facility] Blood hemoglobin measurement (mass/volume)Ordered By: Moraima Merritt on 07-04-2023 Hemoglobin (Bld) [Mass/Vol] 14.6 g/dL 13.0-16.5 [facility] Blood lymphocytes/100 leukoc ytesOrdered By: Moraima Merritt on 07-04-2023 Lymphocytes/100 WBC (Bld) 32.0 % 19-41 [facility] Blood monocytes/100 leukocyt esOrdered By: Moraima Merritt on 07-04-2023 Monocytes/100 WBC (Bld) 10.4 % 0-10 [facility] Blood platelet mean volumeOr dered By: Moraima Merritt on 07-04-2023 Platelet mean volume (Bld) [Entitic vol] 10.9 fL 6.2-12.0 [facility] Determination of erythrocyte mean corpuscular volume (MCV)Ordered By: Moraima Merritt on 07-04-2023 MCV (RBC) [Entitic vol] 100.0 fL 80-94 [facility] Hematocrit Auto (Bld) [Volum e fraction]Ordered By: Moraima Merritt on 07-04-2023 Hematocrit (Bld) [Volume fraction] 45.5 % 40-54 [facility] - Chemistry and C hemistry - challengeOrdered By: Moraima Merritt on 07-04-2023 ALP [Catalytic activity/Vol] 39 U/L 45-117 [facility] ALT [Catalytic activity/Vol] 27 U/L 16-61 [facility] CO2 [Moles/Vol] 28.0 mmol/L 21.0-32.0 [facility] Globulin (S) [Mass/Vol] 3.5 g/dL 2.2-4.2 [facility] Urea nitrogen/Creatinine [Mass ratio] 15.6 mg/mg 10-20 [facility] - Hematology and Cell countsOrdered By: Moraima Merritt on 07-04-2023 Erythrocyte distribution width (RBC) [Entitic vol] 46.9 fL 35.1-43.9 [facility] Erythrocyte distribution width (RBC) [Ratio] 12.7 % 11.6-14.6 [facility] Immature granulocytes/100 WBC (Bld) 1.200 % 0.0-0.9 [facility] Comment on above: IG% - Immature Granu locytes (promyelocytes, myelocytes and metamyelocytes) > 1% indicates that a LEFT SHIFT is Present. MCH (RBC) [Entitic mass] 32.1 pg 27.0-32.0 [facility] Nucleated RBC/100 WBC (Bld) [Ratio] 0 % 0-5 [facility] MCHC Auto (RBC) [Mass/Vol]Or dered By: Moraima Merritt on 07-04-2023 MCHC (RBC) [Mass/Vol] 32.1 g/dL 32-[address] [facility] No Panel InformationOrdered By: Moraima Merritt on 07-04-2023 Estimated GFR (MDRD) Amer 115 mL/min >60 [facility] Comment on above: GFR Calc Estimated GFR (MDRD) Non-Af Amer 95 mL/min >60 [facility] Comment on above: Non- GFR Calc Prostate Specific Antigen Screen 2.22 ng/mL 0.00-4.00 [facility] Comment on above: This test was perfor med using the TPSA assay method for the[employer] chemistry system. Values obtained with differentassay methods cannot be used interchangably.When changing PSA assays in the course of monitoring apatient, additional sequential testing should be carriedout to confirm baseline values. Platelets bldOrdered By: Desiree Merritt on 07-04-2023 Platelets (Bld) [#/Vol] 212 10*3/uL 150-450 [facility] Serum or plasma albumin sissy urement (mass/volume)Ordered By: Moraima Merritt on 07-04-2023 Albumin [Mass/Vol] 3.8 g/dL 3.2-5.0 [facility] Serum or plasma albumin/glob ulin mass ratioOrdered By: Moraima Merritt on 07-04-2023 Albumin/Globulin [Mass ratio] 1.1 {ratio} 0.9-2.4 [facility] Serum or plasma calcium sissy urement (mass/volume)Ordered By: Moraima Merritt on 07-04-2023 Calcium [Mass/Vol] 9.1 mg/dL 8.5-10.1 [facility] Serum or plasma cholesterol in HDL measurement (mass/volume)Ordered By: Moraima Merritt on 07-04-2023 Cholesterol in HDL [Mass/Vol] 63 mg/dL >40 [facility] Comment on above: The drugs N-Acetylcy steine and Metamizole may falsely depress this assay. Reference Range HDL <40 mg/dL Low HDL Cholesterol HDL >or= 60 mg/dL High HDL Cholesterol Serum or plasma cholesterol in VLDL measurement (mass/volume)Ordered By: Moraima Merritt on 07-04-2023 Cholesterol in VLDL [Mass/Vol] 11 mg/dL 5-40 [facility] Serum or plasma creatinine m easurement (mass/volume)Ordered By: Moraima Merritt on 07-04-2023 Creatinine [Mass/Vol] 0.84 mg/dL 0.70-1.[address] [facility] Comment on above: The validity of the calculated GFR & GFRAA in patients over 70 years has not been determined. Clinical correlation is essential. Serum or plasma low density lipoprotein (LDL) cholesterol measurement (mass/volume)Ordered By: Moraima Merritt on 07-04-2023 Cholesterol in LDL [Mass/Vol] 187 mg/dL 0-130 [facility] Serum or plasma urea nitroge n measurement (mass/volume)Ordered By: Moraima Merritt on 07-04-2023 Urea nitrogen [Mass/Vol] 13 mg/dL 7-18 [facility] Thin prep Papanicolaou smear with manual screeningOrdered By: Moraima Merritt on 07-04-2023 Thin prep Papanicolaou smear with manual screening 19 U/L 15-37 [facility] Thin prep Papanicolaou smear with manual screening 6 5-15 [facility] Absolute lymphocyte counton 06-29-2022 Lymphocytes Auto (Unsp spec) [#/Vol] 1.55 10*3/uL 0.83-4.51 [facility] Work Phone: Basophil percentageon 2021 Basophils/100 WBC (Bld) 0.6 % 0-1 [facility] Work Phone: Bilirubin [Mass/Vol] 0.80 mg/dL 0.20-1.00 [facility] Work Phone: Comment on above: For patients on eltr ombopag therapy, use of Dimension [place] TBIL is not recommended. Chloride [Moles/Vol] 107 mmol/L 98-107 [facility] Work Phone: [phone] Cholesterol [Mass/Vol] 287 mg/dL <[address] [facility] Work Phone: [phone] Comment on above: <200 mg/dL Desirable 200-240 mg/dL Borderline >240 mg/dL High Risk Eosinophils/100 WBC (Bld) 1.0 % 0-5 [facility] Work Phone: Glucose [Mass/Vol] 93 mg/dL 74-106 [facility] Work Phone: [phone] Neutrophils (Bld) [#/Vol] 2.9 10*3/uL 2.0-7.7 [facility] Work Phone: [phone] Neutrophils/100 WBC (Bld) 57.0 % 47-70 [facility] Work Phone: [phone] Potassium [Moles/Vol] 4.1 mmol/L 3.5-5.1 [facility] Work Phone: [phone] Protein [Mass/Vol] 7.4 g/dL 6.4-8.2 [facility] Work Phone: [phone] Sodium [Moles/Vol] 142 mmol/L 136-145 [facility] Work Phone: [phone] Triglyceride [Mass/Vol] 98 mg/dL <199 [facility] Work Phone: [phone] Comment on above: The drugs N-Acetylcy steine and Metamizole may falsely depress this assay.Serum Triglycerides Reference Interval Normal <150 mg/dL Borderline high 150 - 199 mg/dL High 200 - 499 mg/dL Very High > or = 500 mg/dL WBC (Bld) [#/Vol] 5.1 10*3/uL 4.4-11.0 [facility] Work Phone: Blood erythrocytes count (nu mber/volume)on 06-29-2022 RBC (Bld) [#/Vol] 4.91 10*6/uL 4.6-6.2 [facility]: Blood hemoglobin measurement (mass/volume)on 06-29-2022 Hemoglobin (Bld) [Mass/Vol] 15.6 g/dL 13.0-16.5 [facility] Work Phone: Blood lymphocytes/100 leukoc yteson 06-29-2022 Lymphocytes/100 WBC (Bld) 30.7 % 19-41 [facility] Work Phone: Blood monocytes/100 leukocyt eson 06-29-2022 Monocytes/100 WBC (Bld) 10.5 % 0-10 [facility] Work Phone: Blood platelet mean volumeon 06-29-2022 Platelet mean volume (Bld) [Entitic vol] 10.6 fL 6.2-12.0 [facility] Work Phone: Determination of erythrocyte mean corpuscular volume (MCV)on 06-29-2022 MCV (RBC) [Entitic vol] 96.1 fL 80-94 [facility] Work Phone: Hematocrit Auto (Bld) [Volum e fraction]on 06-29-2022 Hematocrit (Bld) [Volume fraction] 47.2 % 40-54 [facility] Work Phone: Laboratory - Chemistry and C hemistry - challengeon 06-29-2022 ALP [Catalytic activity/Vol] 53 U/L 45-117 [facility] Work Phone: ALT [Catalytic activity/Vol] 28 U/L 16-61 [facility] Work Phone: CO2 [Moles/Vol] 29.0 mmol/L 21.0-32.0 [facility] Work Phone: Globulin (S) [Mass/Vol] 3.4 g/dL 2.2-4.2 [facility] Work Phone: Urea nitrogen/Creatinine [Mass ratio] 20.5 mg/mg 10-20 [facility] Work Phone: Laboratory - Hematology and Cell countson 06-29-2022 Erythrocyte distribution width (RBC) [Entitic vol] 45.8 fL 35.1-43.9 [facility] Work Phone: Erythrocyte distribution width (RBC) [Ratio] 12.8 % 11.6-14.6 [facility] Work Phone: Immature granulocytes/100 WBC (Bld) 0.200 % 0.0-0.9 [facility] Work Phone: Comment on above: IG% - Immature Granu locytes (promyelocytes, myelocytes and metamyelocytes) > 1% indicates that a LEFT SHIFT is Present. MCH (RBC) [Entitic mass] 31.8 pg 27.0-32.0 [facility] Work Phone: Nucleated RBC/100 WBC (Bld) [Ratio] 0 % 0-5 [facility] Work Phone: MCHC Auto (RBC) [Mass/Vol]on 06-29-2022 MCHC (RBC) [Mass/Vol] 33.1 g/dL 32-[address] [facility] Work Phone: No Panel Informationon 06-29 Estimated GFR (MDRD) Amer 109 mL/min >60 [facility] Work Phone: Comment on above: GFR Calc Estimated GFR (MDRD) Non-Af Amer 90 mL/min >60 [facility] Work Phone: Comment on above: Non- GFR Calc Prostate Specific Antigen Screen 4.01 ng/mL 0.00-4.00 [facility] Work Phone: Comment on above: This test was perfor med using the TPSA assay method for [facility] system. Values obtained with differentassay methods cannot be used interchangably.When changing PSA assays in the course of monitoring apatient, additional sequential testing should be carriedout to confirm baseline values. Platelets bldon 06-29-2022 Platelets (Bld) [#/Vol] 221 10*3/uL 150-450 [facility] Work Phone: Serum or plasma albumin sissy urement (mass/volume)on 06-29-2022 Albumin [Mass/Vol] 4.0 g/dL 3.2-5.0 [facility] Work Phone: Serum or plasma albumin/glob ulin mass ratioon 06-29-2022 Albumin/Globulin [Mass ratio] 1.2 {ratio} 0.9-2.4 [facility] Work Phone: Serum or plasma calcium sissy urement (mass/volume)on 06-29-2022 Calcium [Mass/Vol] 9.3 mg/dL 8.5-10.1 [facility] Work Phone: Serum or plasma cholesterol in HDL measurement (mass/volume)on 06-29-2022 Cholesterol in HDL [Mass/Vol] 62 mg/dL >40 [facility] Work Phone: Comment on above: The drugs N-Acetylcy steine and Metamizole may falsely depress this assay. Reference Range HDL <40 mg/dL Low HDL Cholesterol HDL >or= 60 mg/dL High HDL Cholesterol Serum or plasma cholesterol in VLDL measurement (mass/volume)on 06-29-2022 Cholesterol in VLDL [Mass/Vol] 20 mg/dL 5-40 [facility] Work Phone: Serum or plasma creatinine m easurement (mass/volume)on 06-29-2022 Creatinine [Mass/Vol] 0.88 mg/dL 0.70-1.[address] [facility] Work Phone: Comment on above: The validity of the calculated GFR & GFRAA in patients over 70 years has not been determined. Clinical correlation is essential. Serum or plasma low density lipoprotein (LDL) cholesterol measurement (mass/volume)on 06-29-2022 Cholesterol in LDL [Mass/Vol] 205 mg/dL 0-130 [facility] Work Phone: Serum or plasma urea nitroge n measurement (mass/volume)on 06-29-2022 Urea nitrogen [Mass/Vol] 18 mg/dL 7-18 [facility] Work Phone: Thin prep Papanicolaou smear with manual screeningon 06-29-2022 Thin prep Papanicolaou smear with manual screening 28 U/L 15-37 [facility] Work Phone: Thin prep Papanicolaou smear with manual screening 6 5-15 [facility] Work Phone: PSA, Prostatic Specific Anti genon 04-08-2022 Prostatic Specific Ag 3.426 ng/mL <4.000 [facility] Comment on above: Testing performed on the [employer] using an immunometric methodology. Results obtained by different methods should not be used interchangeably. Test Performed by [facility], [address] , [address] [facility] Prostatic Specific Ag- Diagn osticon 04-08-2022 Prostatic Specific Ag 3.426 ng/mL Normal < 4.000 [facility] Comment on above: Result Comment: Test ing performed on the [employer] using an immunometric methodology. Results obtained by different methods should not be used interchangeably. Performed By: #### P SA3 #### [facility] [address] [address] Culture, urine Bacteria identified Cx Nom (U) Enterococcus faecalis [facility] Work Phone: Vital Signs Date Time Vital Sign Value Performing Clinician Dell gomez 12-27-2023 09:16-0400 Body temperature 98.1 [degF] Dr. Moraima Merritt Work Phone: [facility] 12-27-2023 09:16-0400 Diastolic blood pressure 65 mm[Hg] Dr. Moraima Merritt Work Phone: [facility] 12-27-2023 09:16-0400 Heart rate 61 /min Dr. Moraima Merritt Work Phone: [facility] 12-27-2023 09:16-0400 Respiratory rate 16 /min Dr. Moraima Merritt Work Phone: [facility] 12-27-2023 09:16-0400 SaO2% (BldA) [Mass fraction] 96 % Dr. Moraima Merritt Work Phone: [facility] 12-27-2023 09:16-0400 Systolic blood pressure 94 mm[Hg] Dr. Moraima Merritt Work Phone: [facility] 12-27-2023 07:50-0400 Body height 172.[address] Moraima Merritt Work Phone: [facility] 12-27-2023 07:50-0400 Body mass index (BMI) [Ratio] 24.5 kg/m2 Dr. Moraima Merritt Work Phone: [facility] 12-27-2023 07:50-0400 Body weight 73.[address] Moraima Merritt Work Phone: [facility] 10-12-2023 08:52-0500 Body mass index (BMI) [Ratio] 24.5 kg/m2 Dr. Moraima Merritt Work Phone: [facility] 10-12-2023 08:52-0500 Body weight 73.[address] Moraima Merritt Work Phone: [facility] 03-13-2022 08:34-0400 Body temperature 98.1 [degF] [facility] Work Phone: 03-13-2022 08:34-0400 Diastolic blood pressure 77 mm[Hg] [facility] Work Phone: 03-13-2022 08:34-0400 Heart rate 59 /min [facility] Work Phone: 03-13-2022 08:34-0400 Respiratory rate 16 /min [facility] Work Phone: 03-13-2022 08:34-0400 SaO2% (BldA) [Mass fraction] 97 % [facility] Work Phone: 03-13-2022 08:34-0400 Systolic blood pressure 135 mm[Hg] [facility] Work Phone: 03-12-2022 17:48-0400 Body height 170.18 cm [facility] Work Phone: 03-12-2022 17:48-0400 Body mass index (BMI) [Ratio] 24.8 kg/m2 [facility] Work Phone: 03-12-2022 17:48-0400 Body weight 72 kg [facility] Work Phone: 02-25-2022 00:09-0400 Diastolic blood pressure 63 mm[Hg] [facility] Work Phone: 02-25-2022 00:09-0400 Heart rate 65 /min [facility] Work Phone: 02-25-2022 00:09-0400 Respiratory rate 16 /min [facility] Work Phone: 02-25-2022 00:09-0400 SaO2% (BldA) [Mass fraction] 93 % [facility] Work Phone: 02-25-2022 00:09-0400 Systolic blood pressure 128 mm[Hg] [facility] Work Phone: 02-24-2022 23:01-0400 Body height 172.72 cm [facility] Work Phone: 02-24-2022 23:01-0400 Body mass index (BMI) [Ratio] 25.4 kg/m2 [facility] Work Phone: 02-24-2022 23:01-0400 Body temperature 97.7 [degF] [facility] Work Phone: 02-24-2022 23:01-0400 Body weight 75.9 kg [facility] Work Phone: 01-31-2022 01:22-0400 Diastolic blood pressure 74 mm[Hg] [facility] Work Phone: 01-31-2022 01:22-0400 Heart rate 57 /min [facility] Work Phone: 01-31-2022 01:22-0400 Respiratory rate 16 /min [facility] Work Phone: 01-31-2022 01:22-0400 SaO2% (BldA) [Mass fraction] 96 % [facility] Work Phone: 01-31-2022 01:22-0400 Systolic blood pressure 119 mm[Hg] [facility] Work Phone: 01-31-2022 00:35-0400 Body height 172.72 cm [facility] Work Phone: 01-31-2022 00:35-0400 Body mass index (BMI) [Ratio] 24.8 kg/m2 [facility] Work Phone: 01-31-2022 00:35-0400 Body temperature 98.2 [degF] [facility] Work Phone: 01-31-2022 00:35-0400 Body weight 74.1 kg [facility] Work Phone: Encounters Encounter Date Encounter Type Care Provider Facility Start: 07-30-2025 [facility]: [facility] Start: 07-11-2025 End: 07-11-2025 [facility] Start: 04-25-2025 Non-patient / Non-visit Dr. Priyank marrero MD -[facility] Start: 04-25-2025 End: 04-25-[address] Moraima Merritt DO Work Phone: -[facility] Start: 04-25-2025 End: 04-25-[address] Moraima Merritt DO -[facility] Services Work Phone: Start: 04-25-2025 End: 04-25-2025 ambulatory [facility] Start: 08-31-2024 ambulatory Nicolás Judd Facility:[facility] Start: 08-31-2024 End: 08-31-2024 ambulatory Moraima Merritt Facility:[facility] Start: 08-06-2024 End: 08-06-2024 Telephone encounter Brandon Bowie MD Work Phone: [facility] - [facility] Comment on above: Other (One year foll ow up appointment cancelled per patient request.) Start: 08-02-2024 End: 08-02-2024 ambulatory Moraima Merritt Facility:[facility] Start: 12-27-2023 Non-patient / Non-visit Dr. Niyah Merritt Work Phone: [facility] Start: 12-27-2023 End: 12-27-2023 Admission to same day surgery center Dr. Moraima Merritt Work Phone: [facility]-Endoscopy Work Phone: Start: 12-27-2023 End: 12-27-[address] Moraima Merritt Work Phone: [facility] Work Phone: Start: 10-12-2023 Non-patient / Non-visit Dr. 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 (Primary Dx) Start: 07-04-2023 End: 07-04-2023 ambulatory [facility] Work Phone: Start: 07-04-2023 End: 07-04-2023 Patient encounter procedure [facility]Mikael Alberts [facility] Start: 06-29-2022 End: 06-29-2022 ambulatory [facility] Work Phone: Start: 06-29-2022 End: 06-29-2022 Patient encounter procedure [facility]-Laboratory, Mikael Johnson [facility] Start: 04-08-2022 End: 04-08-2022 Subsequent hospital visit by physician Brandon Bowie MD Work Phone: [facility] Comment on above: Elevated PSA Start: 03-30-2022 End: 03-30-2022 Patient encounter procedure [facility]-Laboratory, Specimen Start: 03-12-2022 End: 03-13-2022 Evaluation and management of inpatient [facility]-Medical Surgical 3 Start: 02-24-2022 End: 02-25-2022 Emergency department patient visit [facility]Emergency Department Start: 01-31-2022 End: 01-31-2022 Emergency department patient visit [facility]gency [facility] Start: 01-10-2017 End: 01-10-2017 Telephone encounter Reji Jade MD Work Phone: [facility] Procedures Date Procedure Procedure Detail Performing Clinician Start: 12-27-[address] Moraima lee Work Phone: Start: 04-08-2022 Assay of prostate specific antigen total Brandon Bowie MD Work Phone: Start: 11-21-2018 Colonoscopy Brandon irby MD Work Phone: Start: 11-16-2013 Colonoscopy Reji don MD Work Phone: History of appendectomy Hx of appendectom y Comment on above: 11-12-11 Urine culture Plan of Treatment Date Care Activity Detail Author Start: 11-21-2028 Screening for malignant neoplasm of colon [facility] Start: 08-08-2024 End: 08-08-2024 Patient encounter procedure 08/08/2024 1:40 PM EST Office Visit [facility] [address] [place] [address] Brandon Bowie MD [address] [place] [address] [address] [place] [address] [facility] Start: 05-27-2024 COVID-19 Vaccine ( season) COVID-19 Vaccine ( season) [facility] Start: 05-27-2024 Influenza vaccination Influenza Vaccine (#1) [facility] Start: 12-27-2023 Patient discharge [facility] Start: 05-27-2023 Influenza vaccination Influenza Vaccine (#1) [facility] Start: 02-01-2023 RSV Immunization for Adults (1 - 1-dose 75+ series) RSV Immunization for Adults (1 - 1-dose 75+ series) [facility] Start: 05-27-2022 Influenza vaccination Flu vaccine (#1) [facility] Start: 05-26-2022 End: 05-26-2022 Patient encounter procedure 05/26/2022 Office Visit Urology Brandon Bowie MD [address] [place] [id number] [facility] Nick Start: 03-13-2022 Patient discharge [facility] Work Phone: Start: 03-13-2022 Removal of urinary catheter [facility] Work Phone: Start: 03-12-2022 Following clinical pathway protocol [facility] Work Phone: Start: 03-12-2022 Admission procedure [facility] Work Phone: Start: 03-12-2022 Irrigation of urinary bladder [facility] Work Phone: Start: 03-12-2022 Anesthesia transurethral resection of prostate ANESTH REMOVAL OF PROSTATE [facility] Work Phone: Start: 03-12-2022 Trurl electrosurg rescj prostate bleed complete PROSTATECTOMY (TURP) [facility] Work Phone: Start: 05-27-2021 Influenza vaccination INFLUENZA (Season Ended) [facility] Start: 11-16-2018 Screening for malignant neoplasm of colon [facility] Start: 11-11-2016 Pneumococcal 65+ years Vaccine (2 - PPSV23 or PCV20) Pneumococcal 65+ years Vaccine (2 - PPSV23 or PCV20) [facility] Start: 11-11-2016 Pneumococcal Vaccine: 65+ Years (2 - PPSV23 or PCV20) Pneumococcal Vaccine: 65+ Years (2 - PPSV23 or PCV20) [facility] Start: 11-11-2016 Pneumococcal Vaccine: 65+ Years (2 of 2 - PPSV23 or PCV20) Pneumococcal Vaccine: 65+ Years (2 of 2 - PPSV23 or PCV20) [facility] Start: 02-07-2015 DIABETES SCREEN DIABETES SCREEN [facility] Start: 02-01-2013 ADVANCE DIRECTIVE DISCUSSION ADVANCE DIRECTIVE DISCUSSION [facility] Start: 02-01-2013 PNEUMOVAX AGE 65 AND OVER WITH 5YR LOOKBACK (#1) PNEUMOVAX AGE 65 AND OVER WITH 5YR LOOKBACK (#1) [facility] Start: 02-01-1998 Screening for malignant neoplasm of colon [facility] Start: 02-01-1998 Shingles vaccine (1 of 2) Shingles vaccine (1 of 2) [facility] Start: 02-01-1998 SHINGRIX VACCINE (1 of 2) SHINGRIX VACCINE (1 of 2) [facility] Start: 02-01-1998 Zoster Vaccines (1 of 2) Zoster Vaccines (1 of 2) [facility] Start: 02-01-1993 Screening for malignant neoplasm of colon [facility] Start: 1988 Lipid panel Lipids [facility] Start: 02-01-1983 LIPID SCREEN LIPID SCREEN [facility] Start: 02-01-1967 DTaP/Tdap/Td vaccine (1 - Tdap) DTaP/Tdap/Td vaccine (1 - Tdap) [facility] Start: 02-01-1967 DTaP/Tdap/Td Vaccines (1 - Tdap) DTaP/Tdap/Td Vaccines (1 - Tdap) [facility] Start: 02-01-1967 Urine microalbumin profile DTAP,TDAP,TD (1 - Tdap) [facility] Start: 02-01-1966 HEPATITIS C SCREENING HEPATITIS C SCREENING [facility] Start: 02-01-1966 Hepatitis C screening [facility] Start: 1960 Adult depression screening assessment DEPRESSION SCREENING [facility] Start: 1960 Depression Screen Depression Screen [facility] Start: 02-01-1953 COVID-19 Vaccine (1) COVID-19 Vaccine (1) [facility] Start: 1948 COVID-19 Vaccine (#1) COVID-19 Vaccine (#1) [facility] Start: 1948 ABDOMINAL AORTIC ANEURYSM SCREENING ABDOMINAL AORTIC ANEURYSM SCREENING [facility] Start: 1948 Annual Wellness Visit (AWV) Annual Wellness Visit (AWV) [facility] Start: 1948 Lipid panel Lipid Panel [facility] Start: 1948 Medicare Annual Wellness (AWV) Medicare Annual Wellness (AWV) [facility] Start: 1948 Screening for malignant neoplasm of colon [facility] Colonoscopy [facility] Patient Education [facility] Work Phone: [facility] Work Phone: Payers Date Payer Category Payer Self-pay [id number] 2024 Self-pay [id number] 2020 Medicare [id number] Private Health Insurance [id number] 2015 Medicare supplementa l policy (as second payer) [employer] MEDICARE SUPPLEMENT [id number] 2013 Medicare HU[employer]NA MEDICARE [employer] MEDICARE PPO [id number] 2013-Present PPO [id number] 2013 Medicare MEDICARE PART A AND B [id number] 5 Unknown [id number] Unknown [id number] Unknown [id number] Unknown [id number] Unknown [id number] Unknown [id number] Unknown [id number] Unknown [id number] Social History Date Type Detail Facility Start: 11-16-2013 End: 12-23-2023 Tobacco smoking status NHIS Former smoker [facility] Start: 11-16-2013 End: 07-07-2022 Alcohol intake Current drinker of alcohol (finding) [facility] Start: 08-11-2011 Alcohol [facility] Start: 1950 Sex Assigned At Not on file [facility] Start: 01-31-2022 End: 12-23-2023 Tobacco smoking status DCIS Unknown if ever smoked [facility] Start: 06-20-2018 Non-smoker [facility] Start: 1950 Sex Assigned At Male [facility] Start: 11-30-2021 Tobacco smoking stat [facility] Never smoked tobacco [facility] Start: 11-30-2021 Tobacco use and exposure Smokeless tobacco non-user [facility] Work Phone: Start: 07-07-2022 History of Social function [facility] Start: 07-07-2022 Tobacco use panel [facility] Start: 04-26-2022 Sex Male (finding) [facility] Procedure Code Equipment Code Equipment Origin al Text Equipment Identifier Dates MESH,PERFIX FLAT PRESHAPED FDA Start: 06-26-2018 MESH,PERFIX FLAT PRESHAPED FDA Start: 06-26-2018 MESH,PERFIX FLAT PRESHAPED FDA Start: 06-26-2018 MESH,PERFIX FLAT PRESHAPED FDA Start: 06-26-2018 MESH,PERFIX FLAT PRESHAPED FDA Start: 06-26-2018 Use as instructed. [id number] Start: 08-03-2023 MESH,PERFIX FLAT PRESHAPED FDA Start: 06-26-2018 MESH,PERFIX FLAT PRESHAPED FDA Start: 06-26-2018 Goals Date Patient Goal Desired Activity /State Functional Status Date Assessment Result Facility 03-13-2022 Functional status Ambulates [facility] Work Phone: Mental Status Date Assessment Result Facility 12-27-2023 Cognitive function Voice/Name [facility] Work Phone: 03-13-2022 Cognitive function Appropriate;Cooperativ [facility] Work Phone: 03-13-2022 Cognitive function Arousable To Voice/Nam e [facility] Work Phone: Clinical Notes 08-03-2023 to 08-06-2024 Telephone Encounter - Sally Alberts - 08/06/2024 4:02 PM ESTTelephone Encounter - Sally Alberts - 08/06/2024 4:02 PM Corbin Bowie MD - 08/03/2023 1:30 PM EST Note Date & Type Note Facility 08-06-2024 Telephone encounter Note The patient called in stating he has an appt 11.13.[address] Bowie but would like to cancel. He states the injections do not work any more and he no longer needs the medicine. Appointment was cancelled per patient request. [facility] 08-06-2024 Miscellaneous Notes The patient called in stating he has an appt 08.08.[address] Bowie but would like to cancel. He states the injections do not work any more and he no longer needs the medicine. Appointment was cancelled per patient request. documented in this encounter [facility] 12-27-2023 Procedure note [facility] 12-27-2023 Procedure note [facility] 08-03-2023 History of Presen t illness Narrative Images from the original note were not included. Lubna Burch APRN - MALINI 08/03/2023 at 1:46 PM Office follow up PATIENT NAME: Prudencio Hutchison DATE OF : 1950 TODAY'S DATE: 08/03/2023 CHIEF COMPLAINT: Chief Complaint Patient presents with Benign Prostatic Hypertrophy Erectile Dysfunction Yearly follow up Pt needs refill on Trimix and syringes Subjective: Mr. Hutchison is a 73 y.o. male who presents to the office for follow up of BPH and ED Last seen 07/07/22 Surgical hx of TURP with Dr. Camara Patient with known erectile dysfunction. He has tried and failed oral PDE 5 inhibitor medications previously for erections. He has been taught to perform self intracavernosal injections using Tri-mix (Papaverine 30mg/Phentolamine 2mg/Alprostadil 20mcg/mL). He has been using 10 units per injection, obtaining erections w/ about 80% rigidity using ICI. He uses [facility] ([place], [place]) No issues w/ injection. No penile pain. No hematuria. No dysuria. No concern for priapism. Currently takes nothing for BPH or urinary symptoms Voids q 3-4 hrs. Nocturia x 0-1. Urgency: Denies UUI: Denies VITA: Denies Dysuria: Denies Feeling of incomplete emptying: Denies Hematuria: Denies Stream is strong. Urinary hesitancy: Denies Review of Systems Gastrointestinal: Negative for abdominal distention. Genitourinary: Negative for dysuria, flank pain, frequency, hematuria and urgency. All other systems reviewed and are negative. Past Medical History: No past medical history on file. Past Surgical History: No past surgical history on file. Allergies: Patient has no known allergies. Social History: Social History Socioeconomic History Marital status: Spouse name: Not on file Number of children: Not on file Years of education: Not on file Highest education level: Not on file Occupational History Not on file Tobacco Use Smoking status: Never Smokeless tobacco: Never Substance and Sexual Activity Alcohol use: Yes Drug use: Not on file Sexual activity: Not on file Other Topics Concern Not on file Social History Narrative Not on file Social Determinants of Health Financial Resource Strain: Not on file Food Insecurity: Not on file Transportation Needs: Not on file Physical Activity: Not on file Stress: Not on file Social Connections: Not on file Intimate Partner Violence: Not on file Housing Stability: Not on file Family History: Medications Prior to Admission medications Medication Sig Start Date End Date Taking? Authorizing Provider cyclobenzaprine (Flexeril) 10 MG tablet Take 5 mg by mouth 3 times daily as needed for muscle spasms. Yes Historical Provider, ibuprofen 200 MG tablet Take 200 mg by mouth every 6 hours as needed. Historical Provider, omega-3 (fish oil) 1000 MG capsule Take 2 g by mouth in the morning. Historical Provider, propranolol LA (Inderal LA) 60 MG 24 hr capsule TAKE 1 CAPSULE BY MOUTH ONCE DAILY AT NIGHT 02/02/23 Historical Provider, Vitals: There were no vitals taken for this visit. Physical Exam General: alert and oriented, in no acute distress, appears stated age, and cooperative Abdomen: soft, non-tender, without masses or organomegaly Back: straight, CVA tenderness absent : defer exam Labs: WBC No results found for: "WBC" BMP No results found for: "NA", "K", "CL", "CO2", "BUN", "CREATININE", "GLUCOSE", CALCIUM PSA Lab Results Component Value Date PSA 3.426 04/08/2022 UA Lab Results Component Value Date UROBILINOGEN 0.2 10/07/2021 BILIRUBINUR neg 10/07/2021 Impression/Plan Diagnoses and all orders for this visit: ED (erectile dysfunction) of organic origin - insulin syringe (Advocate Insulin Syringe) 29G X 1/2" 1 mL misc; Use as instructed. - Alprostadil, Vasodilator, 20 MCG reconstituted solution; Intracavernosal injection of Trimix as directed for erectile dysfunction. Inject 0.3mL or 30 units. Okay to increase by 0.02 or 2 units as needed for desired response up to 0.5 - BPH with LUTS stable post-TURP with Dr. Reid - Pt doing well with ED on the Trimix. Refill sent - Pt educated to go to nearest ED with an erection lasting longer than 2-3 hours on the Trimix - Follow-up in 1 year Follow up in about 1 year (around 08/03/2024) for ED/BPH 1 yr. Lubna Burch APRN - FOOD COOKING MACHINE OPERATOR 08/03/23 1:46 PM I saw and evaluated the patient, participating in the reyes portions of the service. I reviewed the MARCELLO note. I agree with the MARCELLO findings and plan. Brandon Bowie MD documented in this encounter [facility] Evaluation note No assessment inform ation available [facility] Work Phone: Evaluation note Diagnosis Elevated PSA Elevated prostate specific antigen (PSA) documented in this encounter [facility] Work Phone: Evaluation note* Diagnosis ED (erectile dysfunction) of organic origin- Primary Impotence of organic origin documented in this encounter [facility]* Diagnosis Onset Date Resolution Status Personal history of colonic polyps acute [facility] Work Phone: History and physical note Author Reji Jade [facility] December 27, 2023 8:08am Note Date/Time December 27, 2023 8:08 am [facility] Medical Records Department [address] [place] [address] History & Physical Exam 12/27/23805 MR#: [id number] Acct: [id number] Name: PRUDENCIO HUTCHISON Rep #:[id number] 13 : 1950 73 From: Reji Jade MD PCP: Dr. oMraima Merritt, DO Status:[facility] Location: [place] [address] HPI - General General Date of Admission: 06/10/20 Date of Service: 12/27/23 Chief Complaint: Personal history of colon polyps HPI Narrative PRUDENCIO HUTCHISON, is a 73 M who presents for surveillance colonoscopy today. He has a previous history of colon polyps. Previous colonoscopy was November 21, 2018. In addition his mother had colon cancer. He presents via open access today. No abdominal pain. No bright red blood per rectum or melena. He statesthat his health is otherwise been stable. [facility] Medical History (Updated 12/23/23 @ 13:07 by Michelle Lou) Alcohol use Arthritis Back pain BPH (benign prostatic hyperplasia) Chronic low back pain Erectile dysfunction Family history of colon cancer in mother Fatigue Former smoker Hyperlipemia Inguinal hernia of right side without obstruction or gangrene Loss of hearing Tremor, essential Wears contact lenses Wears glasses Home Medications ibuprofen 800 mg tablet 800 mg PO TID PRN Pain 11/15/18 [History Last Taken Unknown] omega-3 fatty acids-fish oil 360 mg-1,200 mg capsule (Fish Oil) 1 cap PO DAILY 10/12/23 [History Last Taken 12/17/23] propranolol 10 mg tablet 10 mg PO 1200 TREMOR 10/12/23 [History Last Taken 12/23/23] turmeric 400 mg capsule 400 mg PO DAILY 10/12/23 [History Last Taken Unknown] Allergy/AdvReac Type Severity Reaction Status Date / Time No Known Allergies Allergy Verified 12/27/23 07:49 Family History Mother Colon cancer Heart disease Surgical History (Updated 12/23/23 @ 13:07 by Michelle Lou) History of bowel resection History of right inguinal hernia repair (~06/2018) Hx of appendectomy Hx of colonoscopy Hx of hernia repair Hx of transurethral resection of prostate Social History Smoking Status: Former smoker second hand exposure: No alcohol intake: current alcohol intake frequency: a few times a month substance use type: does not use caffeine: Yes what type of physical activity do you participate in: other details: Dave frequency: 5-6 times per week seatbelt use: always ROS Constitutional Constitutional: Reports systems reviewed and no addt'l complaints, except as documented Cardiovascular Cardiovascular: Denies chest pain Respiratory/Chest Respiratory/Chest: Denies shortness of breath at rest Gastrointestinal Gastrointestinal: Denies abdominal pain, change in bowel habits, hematochezia ormelena Vital Signs Vital Signs Vital Signs: 12/27/23 07:50 12/27/23 07:50 Temperature 98 F Temperature Source Temporal Pulse Rate 73 Respiratory Rate 16 Respiratory Pattern Normal Blood Pressure 106/79 Blood Pressure Mean 88 Blood Pressure Source Monitor Blood Pressure Position Semi-Fowlers Blood Pressure Location Right Arm Pulse Ox 97 Oxygen Delivery Method Room Air Weight Weight: 161 lb Body Mass Index (BMI) 24.5 Physical Exam Const alert, oriented x3 and no apparent distress General Appearance: cooperative and comfortable Eyes General Eye: normal appearance of both eyes Neck General: normal visual inspection Chest inspection of chest normal Resp Effort and Inspection: able to speak in complete sentences and symmetric chest movement Auscultation: clear to auscultation bilaterally Cardio regular rate and regular rhythm GI soft to palpation, non-tender and non-distended Extremity no calf tenderness Neuro oriented x3 Psych thought process normal Assessment & Plan Assessment/Plan (1) Personal history of colonic polyps: PLAN: 73-year-old gentleman with a personal history of colon polyps and a familyhistory of colon cancer. He presents for surveillance colonoscopy via open access. He is aware of the technique, benefit, risk, alternatives. He has had an opportunity to ask and have questions answered. We will proceed as noted. Reji Jade M.D., F.A.C.S. 12/27/23 0808 <Electronically signed by Reji Jade MD> Cosigner Signature (if applicable): CC: Dr. Moraima Merritt DO; Dr. Reji Jade MD~ Signed [facility] Work Phone: Hospital Discharge instructions Additional Instructions Please follow-up with your urologist for repeat evaluation and return to the ER should you have any further concerns [facility] Work Phone: Hospital Discharge instructions Additional Instructions Please leave your catheter in place until you are evaluated by urology. Please return to the if you have any further concerns or have difficulty with your [facility] Work Phone: [facility] Work Phone: Reason for referral (narrative)No reason for referral information availableC[facility] Work Phone: Chief Complaint and Reason for Visit Chief Complaint urinary issue Chief Complaint urinary issue urinary retention Chief Complaint urinary issue urinary retention CYSTO TURP OLYMPUS Chief Complaint CYSTO TURP OLYMPUS Chief Complaint Amb Documentation Reason for Visit Personal history of colonic polyps Chief Complaint Admit Date Edema, unspecified April 25, 2025 2:22 pm Family History No Family History Records Found Relationship Condition Age at Onset Recorded Date/T cb mother Malignant neoplasm of colon Unknown Cardiac disease Unknown Advance Directives No Advanced Directives Records Found Advance Directive Response Recorded Date/ Time Living Will No January 31, 2022 12 :41am Power of Front Loader Residential Driver No January 31, 2022 12:41am Advance Directive Response Recorded Date/ Time Living Will No February 25, 2022 1 2:09am Power of Front Loader Residential Driver No February 25, 2022 12:09am Advance Directive Response Recorded Date/ Time Living Will No March 12, 2022 5:47pm Power of Front Loader Residential Driver No March 12 5:47pm Advance Directive Response Recorded Date/ Time Living Will No December 23, 2023 1:01pm Power of Front Loader Residential Driver No December 22 1:01pm Summary Purpose Additional Source Comments Source Comments (unrecognize d section and content) In the event this informatio n is protected by the Federal Confidentiality of Alcohol and Drug Abuse Patient Records regulations: The Federal rules restrict any use of the information to criminally investigate or prosecute any alcohol or drug abuse patient.[facility] Goals (unrecognized section and content) Goals may be documented in a n alternate sectionGoals may be documented in an alternate sectionGoals may be documented in an alternate sectionGoals may be documented in an alternate section Care Teams (unrecognized sec tion and content) Mud Temperer Relationship Specialty Start Date End Date Simone Ascencio [address] [place] [id number] PCP - General Family Medicine 07/15/21 Team Status: Active Member Role Status Dates Dr. Moraima Merritt DO Family Provider Active Dr. Moraima Merritt DO Primary Care Provider Active Team Status: Inactive Member Role Status Dates Dr. Moraima Merritt DO Primary Care Provide r, Attending Provider, Referring Provider Active Mud Temperer Relationship Specialty Start Date End Date Simone Ascencio [address] [place] [place] [phone] PCP - General 07/15/21 Brandon Bowie MD [address] [place], [place] [id number] Surgeon Urology 08/03/23 Team Status: Active Member Role Status Dates Dr. Moraima Merritt DO Primary Care Provider Active Destiney Correa Attending Provider Active Team Status: Active Member Role Status Dates Dr. Moraima Merritt DO Primary Care Provider, Referring P rovider Active Dr. Reji Jade MD Attending Provider, Other Prov ider Active Team Status: Inactive Member Role Status Dates Dr. Moraima Merritt DO Primary Care Provider, Referring P rovider Active Dr. Reji Jade MD Attending Provider Active Mud Temperer Relationship Specialty Start Date End Date Simone Ascencio [address] [place] [place] [phone] PCP - General 07/15/21 Brandon Bowie MD [address] [place], [place] [id number] Surgeon Urology 08/03/23 Team Status: Active Member Role/Relationship Status Dates Dr. Moraima Merritt DO Primary Care Provider Active Team Status: Inactive Member Role/Relationship Status Dates Dr. Moraima Merritt DO Primary Care Provider Active Start: April 25, 2025 End: April 25, 2025 Dr. Moraima Merritt DO Attending Provider Active St art: April 25, 2025 End: April 25, 2025 Dr. Moraima Merritt DO Referring Provider Active St art: April 25, 2025 End: April 25, 2025 Team Status: Active Member Role/Relationship Status Dates Dr. Moraima Merritt DO Primary Care Provider Active Start: April 25, 2025 Dr. Priyank Atkins MD Attending Provider Active S tart: April 25, 2025 (unrecognized sect ion and content) No Status Records FoundNo Status Records FoundNo Status Records Found INFORMATION SOURCE (unrecogn ized section and content) DATE CREATED AUTHOR 04/14/2022 [facility] [employer] DATE CREATED AUTHOR AUTHOR'S ORGANIZ ATION 08/08/2024 [facility] [employer] [facility] DATE CREATED AUTHOR AUTHOR'S ORGANIZ ATION 08/01/2025 [facility] Reason for Visit (unrecogniz ed section and content) Reason Comments Benign Prostatic Hypertrophy Erectile Dysfunction Yearly follow up Pt needs refill on Trimix and syringes Reason Onset Date Comments Other 08/06/2024 One year follow up appointment cancelled per patient request. FOR RECORDS PERTAINING TO PATIENTS WHO ARE OR HAVE BEEN ENROLLED IN A CHEMICAL DEPENDENCY/SUBSTANCEABUSE PROGRAM, SOME INFORMATION MAY BE OMITTED. This clinical summary was aggregated from multiple sources. Caution should be exercised in using it in the provision of clinical care. This summary normalizes information from multiple sources, and as a consequence, information in this document may materially change the coding, format and clinical context of patient data. In addition, data may be omitted in some cases. CLINICAL DECISIONS SHOULD BE BASED ON THE PRIMARY CLINICAL RECORDS. to [employer] provides no warranty or guarantee of the accuracy or completeness of information in this document.
[2025-08-01 12:35] LABS: Hematocrit 45.6 % (40-54); Hemoglobin 15.2 g/dL (13.0-16.5); Immature Granulocytes Count 0.010 X10^3/uL (0.0-0.0); Mean Corp Hgb Conc 33.3 g/dL (32-36); Mean Corpuscular Volume 96.8 fL (80-94); Mean Platelet Vol. 10.7 fl (6.2-12.0); NRBC Flagged by Analyzer 0 % (0-5); Platelet Count 204 K/mm3 (150-450); RBC Distribution Width CV 13.6 % (11.6-14.6); RBC Distribution Width SD 48.9 fl (35.1-43.9); Red Blood Count 4.71 M/mm3 (4.6-6.2); White Blood Count 4.3 K/mm3 (4.4-11.0)
[2025-08-01 13:22] LABS: AST(SGOT) 24 U/L (<=37); Alanine Aminotransfer ALT/SGPT 18 U/L (<=46); Albumin, Serum 4.4 g/dL (3.4-4.8); Alkaline Phosphatase 46 U/L (40-129); Anion Gap 11 (5-15); BUN 15 mg/dL (4-19); BUN/Creat Ratio 15.3 RATIO (10-20); Calcium,Total 9.7 mg/dL (7.6-11.0); Carbon Dioxide 27.3 mmol/L (21.0-32.0); Chloride 106 mmol/L (98-108); Cholesterol 250 mg/dL (<=200); Globulin 2.9 g/dL (2.2-4.2); Glucose 97 mg/dL (70-99); Low Density Lipoprotein Calc. 178 mg/dL; PSA,Total- Diagnostic 2.02 ng/mL (0.00-4.00); Potassium 4.5 mmol/L (3.3-5.1); Triglycerides 69 mg/dL; Very Low Density Lipoprotein 14 mg/dL (5-40); cholesterol:hdl ratio screen 4.15
== END | disposition home or self-care (01) ==
PROVIDERS: PCP Family Medicine; Visit Provider Nurse Practitioner Family
DX: N40.0 Benign prostatic hyperplasia without lower urinary tract symptoms (principal); E78.5 Hyperlipidemia, unspecified; Z51.81 Encounter for therapeutic drug level monitoring
CPT/HCPCS: 36415; 80053; 80061; 84153; 85025